=== PATIENT | male | born 1960 | race Caucasian/White ===

== ENCOUNTER 2022-06-22 12:00 | Observation (INO) | payer OTHER, MEDICAID, SELFPAY ==
[2022-06-22] VITALS (15 sets, daily range): BP systolic 105–128; BP diastolic 69–88; PULSE 59–84; RESP 12–22; TEMP 36; O2SAT 91–98; BMI 32.1
--- NOTE | 2022-06-22 12:30 | ED.DIZZY ---
HPI - Dizziness General Chief Complaint: Dizziness Stated Complaint: weakness, vomiting Time Seen by Provider: 06/22/22 12:14 Source: patient, family and EMS Mode of arrival: EMS History of Present Illness HPI Narrative: This 61-year-old man was standing at his home when suddenly he became very dizzy, this was this morning at 10:30 a.m. or 10 40. He said he was so dizzy could not keep himself upright and had to hold onto things to walk. He denies recent illness or fever or cough or URI symptoms. He denies previous history of dizziness. No head injury. He feels very nauseated and the dizziness is much worse with movement of his head. He has no neck pain or headache. No chest symptoms. Past medical history negative. He does not have history of hypertension, diabetes, stroke, cancer or cigarette smoking. He has no first-degree relatives with cerebrovascular disease. Related Data Allergies Allergy/AdvReac Type Severity Reaction Status Date / Time No Known Drug Allergies Allergy Verified 06/22/22 12:12 Review of Systems Review of Systems Narrative: Complete review of systems is negative other than as noted above. Patient History Social History Smoking Status: Never smoker Smoking Status: Never smoker alcohol intake frequency: 0-2 drinks per day Substance Use Type: does not use Exam Narrative Exam Narrative: GENERAL: Alert, cooperative and in no distress. HEAD: Atraumatic. Normocephalic. EYES: Sclera are clear without icterus. Extraocular movements are full. ENT: No rhinorrhea. Oropharynx is moist. Mouth exam is benign. NECK: Supple. Full range of motion. CARDIOVASCULAR: Normal rate and rhythm without murmur gallop or rub. RESPIRATORY: Clear to auscultation. Breath sounds equal bilaterally. No wheezes, rales, or rhonchi. GASTROINTESTINAL: Abdomen soft, non-tender, nondistended. EXTREMITIES: No edema, full range of motion. No obvious trauma. BACK: Normal inspection, no CVA tenderness. NEURO: Strength is normal and symmetric in the upper and lower extremities. Coordination is normal in upper and lower extremities. Visual arriaza are normal to confrontation. Extraocular movements are full. He does have nystagmus at rest. Face is symmetric. Speech is normal. SKIN: No rash or erythema of visible areas PSYCH: Normally oriented. Normal range of affect. Appropriate behavior Initial Vital Signs Initial Vital Signs: Vital Signs Pulse Rate 67 08/29/22 12:05 Course Orders Ordered: ED Orders 06/22/22 12:05 CBC Auto Diff [Complete Blood Count AUTO DIFF] Stat CMP [Comprehensive Metabolic Panel] Stat 06/22/22 12:10 COVID19 -Nasal RAPID/Pre-Proc Stat 06/22/22 12:19 EKG-12 Lead Stat 06/22/22 15:39 CT angio head and neck Stat Ondansetron HCl (Ondansetron 4 Mg/2 Ml Inj) 4 mg IV Q2HR PRN PRN Reason: Nausea And Vomiting Last Admin: 06/22/22 12:38 Dose: 4 mg Documented By: MLMarcelina Discontinued Medications Diazepam (Diazepam 10 Mg/2 Ml Syringe) 2.5 mg IV NOW ONE Stop: 06/22/22 12:29 Last Admin: 06/22/22 12:38 Dose: 2.5 mg Documented By: MARIELA Meclizine HCl (Meclizine Hcl 12.5 Mg Tablet) 25 mg PO NOW ONE Stop: 06/22/22 12:30 Last Admin: 06/22/22 12:38 Dose: 25 mg Documented By: MARIELA Reevaluation(s) Reevaluation #1: I went in just now at 3:30 p.m. to see how the patient was doing. He had just woken up on his own and was feeling quite a bit better with some continued dizziness but no more nausea. I set him up to try to do a road test but he immediate began vomiting again. Because of the severity of his symptoms and his refractory nature of the nystagmus and vomiting I want to check brain imaging and even if this is normal will need to admit for symptom management. Consultations Consultation #1: Discussed the case with Dr. Dobbs who agrees to admit the patient. CTA is negative for large vessel occlusion or vertebral artery dissection. I still think further evaluation for central vertigo is indicated. Vital Signs Vital signs: Vital Signs - 8 hr 06/22/22 12:12 06/22/22 12:05 06/22/22 12:30 Pulse Rate 70 67 68 Respiratory Rate 20 16 Blood Pressure 128/88 Pulse Oximetry 91 91 Oxygen Delivery Method Room Air 06/22/22 13:00 06/22/22 13:30 06/22/22 14:00 Pulse Rate 72 64 68 Respiratory Rate 19 13 14 Blood Pressure Pulse Oximetry 95 94 95 Oxygen Delivery Method 06/22/22 14:30 06/22/22 14:34 06/22/22 14:34 Pulse Rate 72 75 Respiratory Rate 12 14 Blood Pressure 121/79 Pulse Oximetry 98 98 Oxygen Delivery Method 06/22/22 15:00 06/22/22 15:00 Pulse Rate 76 Respiratory Rate 14 Blood Pressure 118/76 Pulse Oximetry 95 Oxygen Delivery Method MDM - Dizziness Lab Data Result diagrams: 06/22/22 12:05 06/22/22 12:05 Labs: Lab Results 06/22/22 06/22/22 06/22/22 Range/Units 12:05 12:05 12:10 WBC 8.4 (4.5-11.0) X10^3/uL RBC 5.11 (4.5-5.9) X10^6/uL Hgb 16.1 (13.5-17.5) g/dL Hct 45.2 (41-53) % MCV 88.4 (80-100) fL MCH 31.5 (26-34) PG MCHC 35.6 (30-36) % RDW 14.0 (11.6-14.8) % Plt Count 231 (150-400) X10^3/uL Neut % (Auto) 30.8 L (50-75) % Lymph % (Auto) 57.9 H (25-40) % [place] % (Auto) 7.9 (3-14) % Eos % (Auto) 2.8 (2-4) % Baso % (Auto) 0.6 (0-2) % Neut # (Auto) 2600 (1048-4426) /uL Lymph # (Auto) 4900 H (8955-8502) /uL [place] # (Auto) 700 (0-900) /uL Eos # (Auto) 200 (0-450) /uL Baso # (Auto) 100 (0-100) /uL Sodium 140 (137-145) mmol/L Potassium 3.3 L (3.4-5.1) mmol/L Chloride 106 (98-107) mmol/L Carbon Dioxide 23 (22-32) mmol/L BUN 13 (9-20) mg/dL Creatinine 0.86 (0.66-1.25) mg/dL Estimated GFR > 60 (>60) mL/min BUN/Creatinine Ratio 15.1 (6-22) Glucose 118 H (80-110) mg/dL Calcium 9.3 (8.4-10.2) mg/dL Total Bilirubin 0.7 (0.2-1.3) mg/dL AST 28 (17-59) IU/L ALT 25 (<50) IU/L Alkaline Phosphatase 63 (38-126) U/L Total Protein 8.0 (6.3-8.2) g/dL Albumin 4.5 (3.5-5.0) g/dL Globulin 3.5 (1.7-4.1) g/dL Albumin/Globulin Ratio 1.3 (1.0-2.8) SARS-CoV-2 (PCR) Negative (Negative) Imaging Data CT scan - head: Radiologist's Impression: IMPRESSION:? ? No imaging explanation is found for this patient's presenting symptoms.? ? No significant intracranial arterial abnormality is seen.? ? Within the arteries of the neck, no hemodynamically significant stenosis can be seen. ? No findings of dissection are seen. ? No acute intracranial process is seen.? ? No acute intracranial hemorrhage is seen.? ? Any quantitative measurements of stenosis were performed using NASCET criteria.? ? ? Dictated by: Murray Simms M.D. on 06/22/2022 at 15:15 ? ? Approved by: Murray Simms M.D. on 06/22/2022 at 15:17 ? ECG Data Interpretation: ECG obtained at 12:15 p.m. shows a sinus rhythm at 78 beats per minute and right bundle-branch block. No acute ST or T-wave change. Discharge Plan Departure Patient Disposition: Admitted As Inpatient Clinical Impression: Vertigo, Central nervous system origin vertigo
[2022-06-22] MEDS: MECLIZINE HCL 12.5 MG TABLET 25 MG PO (12:38)
[2022-06-22] MEDS: ONDANSETRON 4 MG/2 ML INJ IV (12:38)
[2022-06-22] MEDS: diazePAM 10 MG/2 ML SYRINGE 2.5 MG IV (12:38)
[2022-06-22 12:42] LABS: Alanine Aminotransferase 25 IU/L (<50); Albumin 4.5 g/dL (3.5-5.0); Albumin Globulin Ratio 1.3 (1.0-2.8); Alkaline Phosphatase 63 U/L (38-126); Aspartate Aminotransferase 28 IU/L (17-59); BUN Creatinine Ratio 15.1 (6-22); Bilirubin Total 0.7 mg/dL (0.2-1.3); Blood Urea Nitrogen 13 mg/dL (9-20); Calcium 9.3 mg/dL (8.4-10.2); Carbon Dioxide 23 mmol/L (22-32); Chloride 106 mmol/L (98-107); Estimated Glomerular Filt Rate > 60 mL/min (>60); Globulin 3.5 g/dL (1.7-4.1); Glucose 118 mg/dL (80-110); HEMOLYSIS 31 (0-50); Potassium 3.3 mmol/L (3.4-5.1); Sodium 140 mmol/L (137-145)
[2022-06-22 12:47] LABS: COVID19 -Nasal RAPID Negative (Negative)
[2022-06-22 12:49] LABS: Add Manual Diff / Slide Review NO; Basophils Absolute Auto 100 /uL (0-100); Basophils Percent Auto 0.6 % (0-2); Eosinophils Absolute Auto 200 /uL (0-450); Eosinophils Percent Auto 2.8 % (2-4); Hematocrit 45.2 % (41-53); Hemoglobin 16.1 g/dL (13.5-17.5); Lymphocytes Absolute Auto 4900 /uL (1100-4500); Lymphocytes Percent Auto 57.9 % (25-40); Mean Corpuscular HGB Conc 35.6 % (30-36); Mean Corpuscular Hemoglobin 31.5 PG (26-34); Mean Corpuscular Volume 88.4 fL (80-100); Monocytes Absolute Auto 700 /uL (0-900); Monocytes Percent Auto 7.9 % (3-14); Neutrophils Absolute Auto 2600 /uL (1500-7000); Neutrophils Percent Auto 30.8 % (50-75); Platelet Count 231 X10^3/uL (150-400); Red Blood Cell Count 5.11 X10^6/uL (4.5-5.9); White Blood Cell Count 8.4 X10^3/uL (4.5-11.0)
--- NOTE | 2022-06-22 15:39 | DI.CT.S_ITS ---
PROCEDURE: CT ANGIO HEAD AND NECK INDICATIONS: Refractory vertigo TECHNIQUE: Pre-contrast 4.5 mm thick sections acquired from the foramen magnum to the vertex. After the administration of intravenous contrast, 1 mm thick sections acquired from the aortic arch through the [place] of [place]. Post-contrast 4.5 mm thick sections then re-acquired from the foramen magnum to the vertex. 3-dimensional pybresz-tddtxrmzo-ibeyqbavgf (MIP) and/or volume rendering reformats were acquired of the central intracranial vasculature and neck separately. For radiation dose reduction, the following was used: automated exposure control, adjustment of mA and/or kV according to patient size. COMPARISON: None. FINDINGS: Image quality: Excellent. BRAIN: CSF spaces: Ventricles are normal in size and shape. Basal cisterns are patent. No extra-axial fluid collections. Brain: No midline shift. No intracranial bleeds or masses. [place]-white matter interface appears intact. Skull and face: Calvarium and facial bones appear intact, without suspicious lesions. Orbits appear normal. Sinuses: Sinuses and mastoids are clear. HEAD CT ANGIOGRAPHY: Anterior circulation: Intracranial internal carotid arteries are normal in size and flow. The flow within the paired anterior cerebral arteries is normal and symmetric. The flow within the middle cerebral arteries is normal and symmetric. The anterior communicating artery is seen. No aneurysms are seen. Posterior circulation: Visualized portions of the vertebral arteries demonstrate normal caliber, and join to form a normal appearing basilar artery. There is a prominent right posterior communicating artery seen, with an accompanying diminutive right P1 segment. This is attributed to a type origin of the right posterior cerebral artery, which is considered to be a normal developmental variant of typically no clinical consequence. Flow within the posterior cerebral arteries is normal and symmetric. No aneurysms are seen. NECK CT ANGIOGRAPHY: Carotid system: The great vessels demonstrate a conventional anatomy as they arise from the aortic arch. The origins of the common carotid arteries appear patent. The common carotid arteries demonstrate normal caliber and courses. The bifurcation regions are both widely patent. The internal carotid arteries demonstrate normal calibers and courses. Posterior circulation: The origins of the vertebral arteries both appear widely patent. The more superior extracranial portions of both vertebral arteries also demonstrate normal courses and calibers. They join to form a normal appearing basilar artery. Soft tissues: Visualized neck soft tissues demonstrate no suspicious abnormalities. Bones: No suspicious bony lesions. Visualized cervical spine appears normally aligned. Moderate cervical spine degenerative changes are seen. IMPRESSION: No imaging explanation is found for this patient's presenting symptoms. No significant intracranial arterial abnormality is seen. Within the arteries of the neck, no hemodynamically significant stenosis can be seen. No findings of dissection are seen. No acute intracranial process is seen. No acute intracranial hemorrhage is seen. Any quantitative measurements of stenosis were performed using NASCET criteria. Dictated by: Murray Simms M.D. on 06/22/2022 at 15:15 Approved by: Murray Simms M.D. on 06/22/2022 at 15:17
--- NOTE | 2022-06-22 18:04 | DI.MRI.S_ITS ---
PROCEDURE: MR HEAD/BRAIN WO CON INDICATIONS: r/o cerebellar stroke, pt w/ severe vertigo, NV, nystagmus TECHNIQUE: Noncontrast axial T1 spin echo, axial T2 fast spin echo, sagittal and axial FLAIR, coronal T2 fast spin echo, axial gradient echo, axial diffusion and ADC through the brain. COMPARISON: None. FINDINGS: Image quality: Excellent. CSF Spaces: Basal cisterns are patent. No extra-axial fluid collections. Ventricles are normal in size and shape. Brain: No intracranial masses or hemorrhage. [place]/white matter interface is normal. Brainstem appears normal. Diffusion-weighted images demonstrate no acute infarct. Normal intravascular flow voids are present. Mild atrophy and white matter chronic ischemic change without cerebellar infarct Skull and face: Calvarium has normal marrow signal. Orbits appear normal. Sinuses: Sinuses and mastoids are clear. IMPRESSION: Mild atrophy and white matter chronic ischemic change without acute infarct, hemorrhage or mass lesion. No cerebellar infarct. Approved by: Wesly Bentley M.D. on 06/22/2022 at 18:08
--- NOTE | 2022-06-22 18:06 | P.HP_ITS ---
History of Present Illness History of Present Illness Chief complaint: weakness, vomiting Narrative: Eric Good is a 61yo male with PMH of who presents with severe vertigo, NV and nystagmus. Patient History Family & Social History Safety & Behavioral: Feels Safe in Current Yes Environment Tobacco & Substance use: Smoking Status Never smoker alcohol intake frequency 0-2 drinks per day Substance Use Type does not use Meds Home Medications and Allergies Allergies Allergy/AdvReac Type Severity Reaction Status Date / Time No Known Drug Allergies Allergy Verified 06/22/22 12:12 Review of Systems Review of Systems Narrative: All other systems reviewed with the patient and are negative unless otherwise stated. Exam Vital Signs (past 8 hours): - 06/22/22 12:12 06/22/22 12:05 06/22/22 12:30 Pulse Rate 70 67 68 Respiratory Rate 20 16 Blood Pressure 128/88 Pulse Oximetry 91 91 Oxygen Delivery Method Room Air 06/22/22 13:00 06/22/22 13:30 06/22/22 14:00 Pulse Rate 72 64 68 Respiratory Rate 19 13 14 Blood Pressure Pulse Oximetry 95 94 95 Oxygen Delivery Method 06/22/22 14:30 06/22/22 14:34 06/22/22 14:34 Pulse Rate 72 75 Respiratory Rate 12 14 Blood Pressure 121/79 Pulse Oximetry 98 98 Oxygen Delivery Method 06/22/22 15:00 06/22/22 15:00 06/22/22 15:30 Pulse Rate 76 Respiratory Rate 14 Blood Pressure 118/76 123/85 Pulse Oximetry 95 Oxygen Delivery Method 06/22/22 15:30 06/22/22 17:49 06/22/22 17:49 Pulse Rate 84 82 Respiratory Rate 22 20 Blood Pressure 128/88 Pulse Oximetry 94 95 Oxygen Delivery Method Oxygen Delivery Method Room Air Narrative Exam Narrative: GEN: no acute distress HEENT: moist mucous membranes, PERRL NECK: trachea midline, no JVD CV: regular rate and rhythm, no murmurs PULM: clear bilaterally ABD: soft, nontender, nondistended, no organomegaly EXT: warm and well perfused with no edema NEURO: awake, alert, oriented, no focal deficits Objective Labs Result Diagrams: 06/22/22 12:05 06/22/22 12:05 Labs: Laboratory Results - last 24 hr 08/29/22 08/29/22 08/29/22 12:05 12:05 12:10 WBC 8.4 RBC 5.11 Hgb 16.1 Hct 45.2 MCV 88.4 MCH 31.5 MCHC 35.6 RDW 14.0 Plt Count 231 Neut % (Auto) 30.8 L Lymph % (Auto) 57.9 H [place] % (Auto) 7.9 Eos % (Auto) 2.8 Baso % (Auto) 0.6 Neut # (Auto) 2600 Lymph # (Auto) 4900 H [place] # (Auto) 700 Eos # (Auto) 200 Baso # (Auto) 100 Sodium 140 Potassium 3.3 L Chloride 106 Carbon Dioxide 23 BUN 13 Creatinine 0.86 Estimated GFR > 60 BUN/Creatinine Ratio 15.1 Glucose 118 H Calcium 9.3 Total Bilirubin 0.7 AST 28 ALT 25 Alkaline Phosphatase 63 Total Protein 8.0 Albumin 4.5 Globulin 3.5 Albumin/Globulin Ratio 1.3 SARS-CoV-2 (PCR) Negative Assessment & Plan Assessment & Plan narrative: # severe vertigo, nausea vomiting and nystagmus -concern is for possible cerebellar stroke -CTA head and neck negative -order MR brain - Code status is []. COVID []. DVT prophylaxis with []. Proxy is []. I have reviewed home meds and used all available resources to reconcile the home meds. Time Spent With Patient Critical Care time: I spent a total of [] minutes of critical care time on this patient's care today ; this time is exclusive of procedural time.
[2022-06-22 18:38] LABS: Hemoglobin A1C% w Est Avg Glu 5.5 % (4.0-6.0)
[2022-06-22 18:49] LABS: TSH w/ Reflex to FT4 1.85 uIU/mL (0.47-4.68)
[2022-06-22] MEDS: POTASSIUM CHLORIDE IN WATER 10 MEQ/100 ML PIGGYBACK 100 MEQ IV ×3 (19:42→22:41)
[2022-06-22] MEDS: ASPIRIN 325 MG TABLET PO (19:48)
[2022-06-22 23:18] LABS: Appearance Urine UA CLEAR; Bilirubin Urine UA NEGATIVE (NEGATIVE); Color Urine UA YELLOW; Glucose Urine UA NEGATIVE (Negative); Ketones Urine UA NEGATIVE (NEGATIVE); Leukocyte Esterase Urine UA NEGATIVE (NEGATIVE); Nitrite Urine UA NEGATIVE (Negative); Occult Blood Urine UA NEGATIVE (Negative); Protein Urine UA NEGATIVE (Negative); Specific Gravity Urine UA 1.015 (1.000-1.035); Urobilinogen Urine UA 0.2 E.U./dL (0.2); pH Urine UA 7.5 (4.5-8.0)
--- NOTE | 2022-06-22 23:23 | P.HP_ITS ---
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 Patient was presented to the ED by EMS following an acute onset at approximately 10:30 a.m. while standing of severe dizziness, the patient experienced disequilibrium, felt faint, diaphoresis, chills, nausea and began vomiting. This continued continued with any movement of his head or physical movement both in the ambulance, & in ED (vomited 8-9 times), but had resolved when transferred to the floor. The patient reports that he felt extremely sleepy both in the ambulance EN in the ED and was able to fall asleep. The patient received multiple doses of antiemetics in ED. 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 The patient's reported severe horizontal beating nystagmus with standing multiple times, not recorded on physi ely exam in ED. the patient denied any diplopia, ataxia, dysarthria, coordination impairment, focal or lateral weakness, changes in hearing loss, numbness, tingling, vision loss. Patient denies experiencing chest pain, shortness of breath, or becoming pale. He has never experienced this prior. Th sha attacks were not brought on by coughing, sneezing, denies recent URI, travel to altitude, recent head trauma body trauma, or injury. Patient notes that he did fly to multiple places around the country approximately 1 month ago. 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 Patient does not smoke, drinks approximately 1 beer daily, takes only an [id number] multivitamin, no other medications, no history of cardiac, respiratory, or neurological disorders. Patient does note that the last week in April patient had dental surgery on the upper right side of his mouth that required a bone graft and work with the nerve endings, patient does note that he has had some dental pain few teeth back on that upper right side. Patient is comfortably resting in bed upon admit to the floor and denies any di zziness, vertigo nausea, or vomiting at this time. A full neuro exam was completed, no symptoms were elicited, and was unremarkable. Patient's vitals were stable temp 96.8?, BP 123/88, HR 78, RR 12, O2 saturation 95% on room air, BMI 32.1, patient's CBC was unremarkable with the exception of lymph # [id number], patient had slight hypokalemia with a potassium of 3.3, glucose when 18, TSH was normal, head neck CT was unremarkable, brain MRI was unremarkable, patient's ECG sinus rhythm with a rate of 78 right bundle-branch block without ST or T-wave changes. Patient admitted for intractable nausea and vomiting, severe vertigo, with mild hypokalemia for observation. Patient History Medical History (Updated 06/22/22 @ 23:47 by TD Escobar-) Herniated lumbar intervertebral disc History of Chavez's palsy History of Lyme disease Mildly obese Surgical History (Updated 06/22/22 @ 23:49 by TD Escobar-) History of dental surgery History of inguinal hernia repair, bilateral History of lumbar surgery Family & Social History Family History (Updated 06/22/22 @ 23:48 by TD Escobar-BC) Mother Cancer Father Diabetes mellitus Cancer Social History: household members significant other, works as a ritchie Prior Living Arrangements House Safety & Behavioral: Feels Safe in Current Yes Environment Been Physically Hurt or No Threatened By a Person Tobacco & Substance use: Smoking Status Never smoker, no tobacco products alcohol intake current alcohol intake frequency 0-2 drinks per day beer Substance Use Type does not use Meds Home Medications and Allergies Home Medications Medication Instructions Recorded Confirmed Type No Known Home Medications 06/22/22 06/22/22 History Allergies Allergy/AdvReac Type Severity Reaction Status Date / Time No Known Drug Allergies Allergy Verified 06/22/22 12:12 Review of Systems Review of Systems Narrative: All 12 point systems reviewed with the patient and are negative except otherwise documented. Exam Vital Signs (past 8 hours): - 06/22/22 15:30 06/22/22 15:30 06/22/22 17:49 Temperature Pulse Rate 84 Pulse Rate [Orthostatic Lying] Pulse Rate [Orthostatic Sitting] Pulse Rate [Orthostatic Standing] Respiratory Rate 22 Blood Pressure 123/85 128/88 Blood Pressure [Orthostatic Lying] Blood Pressure [Orthostatic Sitting] Blood Pressure [Orthostatic Standing] Pulse Oximetry 94 Oxygen Delivery Method Oxygen Flow Rate 06/22/22 17:49 06/22/22 18:00 06/22/22 18:00 Temperature Pulse Rate 82 78 Pulse Rate [Orthostatic Lying] Pulse Rate [Orthostatic Sitting] Pulse Rate [Orthostatic Standing] Respiratory Rate 20 12 Blood Pressure 123/88 Blood Pressure [Orthostatic Lying] Blood Pressure [Orthostatic Sitting] Blood Pressure [Orthostatic Standing] Pulse Oximetry 95 95 Oxygen Delivery Method Oxygen Flow Rate 06/22/22 18:45 06/22/22 18:14 06/22/22 20:54 Temperature 96.8 F L Pulse Rate 66 Pulse Rate [Orthostatic Lying] 60 Pulse Rate [Orthostatic Sitting] 59 L Pulse Rate [Orthostatic Standing] 60 Respiratory Rate 18 Blood Pressure 123/82 Blood Pressure [Orthostatic Lying] 128/83 Blood Pressure [Orthostatic Sitting] 123/79 Blood Pressure [Orthostatic Standing] 117/69 Pulse Oximetry 97 Oxygen Delivery Method Room Air Oxygen Flow Rate 0 06/22/22 23:04 Temperature Pulse Rate 63 Pulse Rate [Orthostatic Lying] Pulse Rate [Orthostatic Sitting] Pulse Rate [Orthostatic Standing] Respiratory Rate 18 Blood Pressure 105/71 Blood Pressure [Orthostatic Lying] Blood Pressure [Orthostatic Sitting] Blood Pressure [Orthostatic Standing] Pulse Oximetry 92 Oxygen Delivery Method Oxygen Flow Rate 0 Oxygen Delivery Method Room Air Oxygen Flow Rate 0 Narrative Exam Narrative: General: Patient is a well-developed, well-nourished healthy pleasant male in no distress at this time. HEENT: Normocephalic, atraumatic, extraocular muscles intact, no nystagmus noted, oral pharynx is clear and mucous membranes are moist. Neck is supple and symmetric, trachea is midline, Noted tenderness to the upper right tooth area (#2-4, #5 missing where bone graph was placed) mild non erythemic inflammation noted along the temporal fascia, zygomatic arch, mastoid and parietal gland area on the right side, nontender to palpation, cool to touch, no thyroid enlargement, Negative for JVD. Patient had no vertigo with bending at the neck, ruling over in bed, or head motion. Or sitting up on the side of the bed. Chest: Normal AP diameter and contour without kyphoscoliosis, no nasal flaring, retractions, or tachypneic labored Lungs: Auscultation of all lung arriaza are clear without adventitious sounds, wheezes, rhonchi, or rales. Cardio: S1 & S2 with regular rate and rhythm without murmur, rubs, or gallops, no carotid bruit, no cardiac pulsations present. Abdomen: Soft nontender, negative for organomegaly, or masses. Bowel sounds are present in all 4 quadrants without guarding or rebound, no CVA tenderness. Musculoskeletal: Muscle strength and tone are equal within normal limits, no deformity, crepitus, effusions, cyanosis, clubbing or edema present. Full range of motion intact radial and pedal pulses are normal. Skin: Warm dry and intact without rashes, ulcerations or petechiae. Neuro: Alert and orientated x3, strength is +5/5 in all extremities, sensation to touch intact, no gross deficits noted of cranial nerves. Psych: Patient has a well-kept appearance, appropriate affect, mental status attitude thought context and judgment are appropriate for age. Objective Labs Result Diagrams: 06/22/22 12:05 06/22/22 12:05 Labs: Laboratory Results - last 24 hr 06/22/22 06/22/22 06/22/22 12:05 12:05 12:05 WBC 8.4 RBC 5.11 Hgb 16.1 Hct 45.2 MCV 88.4 MCH 31.5 MCHC 35.6 RDW 14.0 Plt Count 231 Neut % (Auto) 30.8 L Lymph % (Auto) 57.9 H Kinney % (Auto) 7.9 Eos % (Auto) 2.8 Baso % (Auto) 0.6 Neut # (Auto) 2600 Lymph # (Auto) 4900 H [place] # (Auto) 700 Eos # (Auto) 200 Baso # (Auto) 100 Sodium 140 Potassium 3.3 L Chloride 106 Carbon Dioxide 23 BUN 13 Creatinine 0.86 Estimated GFR > 60 BUN/Creatinine Ratio 15.1 Glucose 118 H Hemoglobin A1c 5.5 Calcium 9.3 Total Bilirubin 0.7 AST 28 ALT 25 Alkaline Phosphatase 63 Total Protein 8.0 Albumin 4.5 Globulin 3.5 Albumin/Globulin Ratio 1.3 TSH Urine Color Urine Appearance Urine pH Ur Specific [place] Urine Protein Urine Glucose (UA) Urine Ketones Urine Occult Blood Urine Nitrate Urine Bilirubin Urine Urobilinogen Ur Leukocyte Esterase SARS-CoV-2 (PCR) 06/22/22 06/22/22 06/22/22 12:05 12:10 22:30 WBC RBC Hgb Hct MCV MCH MCHC RDW Plt Count Neut % (Auto) Lymph % (Auto) [place] % (Auto) Eos % (Auto) Baso % (Auto) Neut # (Auto) Lymph # (Auto) [place] # (Auto) Eos # (Auto) Baso # (Auto) Sodium Potassium Chloride Carbon Dioxide BUN Creatinine Estimated GFR BUN/Creatinine Ratio Glucose Hemoglobin A1c Calcium Total Bilirubin AST ALT Alkaline Phosphatase Total Protein Albumin Globulin Albumin/Globulin Ratio TSH 1.85 Urine Color Yellow Urine Appearance Clear Urine pH 7.5 Ur Specific [place] 1.015 Urine Protein Negative Urine Glucose (UA) Negative Urine Ketones Negative Urine Occult Blood Negative Urine Nitrate Negative Urine Bilirubin Negative Urine Urobilinogen 0.2 Ur Leukocyte Esterase Negative SARS-CoV-2 (PCR) Negative Assessment & Plan Assessment & Plan narrative: Eric Good is a 61-year-old male with a 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 Patient admitted for observation, oral fluid hydration, replacement of mild hypokalemia, evaluation by PT/OT, rule out of cerebellar brainstem stroke. 1. Severe intractable vertigo with nystagmus and vomiting, acute, present on admission-resolving -patient was described as having a horizontal beating nystagmus was unable to further evaluate as was absent at the time of admit exam, patient did have postural instability, no deafness or tinea S, and no other neurological signs or symptoms were present, brain MRI was negative for any cerebellar brain stem stroke suggestive that this is peripheral vertigo versus central. NIH-0. I actually suspect that the patient's dental surgery(hardware, nerve, and bone graph) may possible developing a subacute dental infection (parotiditis, mastoiditis) on the right side with noted swelling around mastoid area. Though the patients blood work is initially unremarkable, swelling infection in this area could quickly lead to airway compromise. -because of the severity and acuteness of the patient's onset and the recent dental surgery-order blood cultures x2 -empiric antibiotic therapy penicillin 3 units q.4 hours, metrondazole 500 mg Q 8 hours IV -to cover streptococci and anaerobes including those producing beta l actamase -antiemetics, procalcitonin, repeat BNP and CBC in a.m. -encourage oral fluids and hydration -Monitor for sepsis -recommend that patient be sent home on oral antibiotics with follow-up appoin tments with his dentist -evaluation by PT and OT [place] maneuvers -ortho stats q.4 hours while awake 2. Mild hypokalemia likely secondary to vomiting, acute, present on admission- resolved -initial potassium 3.3-10 mEq IV initiated in ED -recheck potassium in a.m. 3. Mildly obese as evidence by BMI of 32.1, acute on chronic, present on admission -dietary consult ordered for recommendations regarding diet lifestyle and weight loss changes. Code status: Full Surrogate decision maker: Partner Juana Fish BAUTISTAID PCR: Negative COVID vaccination: Fully vaccinated DVT/VTE prophylaxis: Lovenox and SCDs Disposition: Patient admitted for observation expected length of stay no greate r than 2 midnights. I have utilized all available immediate resources to obtain, update, or review t he patient's current medications. I confirmed that the patient's advanced care plan is present, Code status is documented and/or surrogate decision maker is listed in the patient's medical record. Time Spent With Patient Critical Care time: I spent a total of [] minutes of critical care time on this patient's care today; this time is exclusive of procedural time. Scores NIHSS Level of Conciousness: Alert, keenly responsive Ask month/age: Answers both questions correctly. Open/close eyes, close hand: Performs both tasks correctly Best gaze horizontal: Normal Visual arriaza: No visual loss Facial palsy: Normal symetrical movement Left arm drift: No drift for full 10 sec Right arm drift: No drift for full 10 sec Left leg drift: No drift for full 5 sec Right leg drift: No drift for full 5 sec Limb ataxia: Absent Sensory on face/arms/legs: Normal, no sensory loss Best language: No aphasia, normal Dysarthria: Normal Extinction or inattention: No abnormality Total NIH Stroke scale score: 0 Quality VTE Deep Vein Thrombosis/Pulmonary Embolism Present on Admission: No
[2022-06-22 23:25] LABS: Bacteria Urine None Seen; Culture Indicated Urine Cult Not Indicated; RBC Urine None Seen (0-5/HPF); WBC Urine None Seen (0-5/HPF)
[2022-06-23] MEDS: POTASSIUM CHLORIDE IN WATER 10 MEQ/100 ML PIGGYBACK 100 MEQ IV (01:12)
[2022-06-23] MEDS: metroNIDAZOLE 500 MG/100 ML PIGGYBACK 100 MG IV ×2 (01:13→08:30)
[2022-06-23] MEDS: ONDANSETRON 4 MG/2 ML INJ IV (01:20)
[2022-06-23 01:35] LABS: Procalcitonin 0.05 ng/mL (<0.5)
[2022-06-23] MEDS: PENICILLIN G POTASSIUM 3,000,000 UNIT/50 ML FROZ.PIGGY 100 UNIT IV ×2 (03:15→08:30)
[2022-06-23 04:00] VITALS: BP 111/72; PULSE 86; RESP 18; TEMP 37; O2SAT 95
--- NOTE | 2022-06-23 07:42 | PM.DS.1 ---
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 Patient was presented to the ED by EMS following an acute onset at approximately 10:30 a.m. while standing of severe dizziness, the patient experienced disequilibrium, felt faint, diaphoresis, chills, nausea and began vomiting. This continued continued with any movement of his head or physical movement both in the ambulance, & in ED (vomited 8-9 times), but had resolved when transferred to the floor.? The patient reports that he felt extremely sleepy both in the ambulance EN in the ED and was able to fall asleep.? The patient received multiple doses of antiemetics in ED.? 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 ? ? The patient's reported severe horizontal beating nystagmus with standing multiple times, not recorded on physical exam in ED. the patient denied any diplopia, ataxia, dysarthria, coordination impairment, focal or lateral weakness, changes in hearing loss, numbness, tingling, vision loss.? Patient denies experiencing chest pain, shortness of breath, or becoming pale.? He has never experienced this prior.? These attacks were not brought on by coughing, sneezing, denies recent URI, travel to altitude, recent head trauma body trauma, or injury.? Patient notes that he did fly to multiple places around the country approximately 1 month ago.? 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 Patient does not smoke, drinks approximately 1 beer daily, takes only an ymcp-cey-nokghby multivitamin, no other medications, no history of cardiac, respiratory, or neurological disorders.? Patient does note that the last week in April patient had dental surgery on the upper right side of his mouth that required a bone graft and work with the nerve endings, patient does note that he has had some dental pain few teeth back on that upper right side. Patient is comfortably resting in bed upon admit to the floor and denies any dizziness, vertigo nausea, or vomiting at this time.? A full neuro exam was completed, no symptoms were elicited, and was unremarkable.? Patient's vitals were stable temp 96.8?, BP 123/88, HR 78, RR 12, O2 saturation 95% on room air, BMI 32.1, patient's CBC was unremarkable with the exception of lymph # [id number], patient had slight hypokalemia with a potassium of 3.3, glucose when 18, TSH was normal, head neck CT was unremarkable, brain MRI was unremarkable, patient's ECG sinus rhythm with a rate of 78 right bundle-branch block without ST or T-wave changes.? Patient admitted for intractable nausea and vomiting, severe vertigo, with mild hypokalemia for observation. Discharge Providers Provider Date of admission: 06/22/22 17:44 Discharge Date: 06/23/22 Consults: 06/22/22 18:59 Consult to Occupational Therapy Evaluate & Treat Comment: Physician Instructions: Evaluate and treat Consult to Physical Therapy Evaluate & Treat Comment: Physician Instructions: Evaluate and Treat Discharge provider: Garrison Dobbs DO Summary Hospital Course Discharge Diagnosis: 1. Severe intractable vertigo with nystagmus and vomiting, acute, present on admission-resolving -patient was described as having a horizontal beating nystagmus was unable to further evaluate as was absent at the time of admit exam, patient did have postural instability, no deafness or tinea S, and no other neurological signs or symptoms were present, brain MRI was negative for any cerebellar brain stem stroke suggestive that this is peripheral vertigo versus central. NIH-0.? I actually suspect that the patient's dental surgery(hardware, nerve, and bone graph) may possible developing a subacute dental infection (parotiditis, mastoiditis) on the right side with noted swelling around mastoid area. Though the patients blood work is initially unremarkable, swelling infection in this area could quickly lead to airway compromise. -because of the severity and acuteness of the patient's onset and the recent dental surgery-order blood cultures x2 -empiric antibiotic therapy penicillin 3 units q.4 hours, metrondazole 500 mg Q 8 hours IV -to cover streptococci and anaerobes including those producing beta lactamase -antiemetics, procalcitonin, repeat BNP and CBC in a.m. -encourage oral fluids and hydration -Monitor for sepsis -recommend that patient be sent home on oral antibiotics with follow-up appointments with his dentist -evaluation by PT and OT Piero Hallpike maneuvers -ortho stats q.4 hours while awake 2. Mild hypokalemia likely secondary to vomiting, acute, present on admission-resolved -initial potassium 3.3-10 mEq IV initiated in ED -recheck potassium in a.m. 3. Mildly obese as evidence by BMI of 32.1, acute on chronic, present on admission -dietary consult ordered for recommendations regarding diet lifestyle and weight loss changes. Hospital Course: Admitted for severe vertigo with NV. Concern was for cerebellar stroke but MR brain negative. Upon further eval he noted periodontal pain so thought was that a tooth infection may be contributing to his vertigo. He was started on augmentin. His vertigo resolved while inpatient. Possibly due to BPPV however patient denied it was related to head position. Discharged to f/u with PCP for piero-hallpike maneuver. Time Spent with Patient Time spent: Greater than 30 minutes Exam Vital Signs (past 8 hours): - 06/23/22 04:00 Temperature 98.6 F Pulse Rate 86 Respiratory Rate 18 Blood Pressure 111/72 Pulse Oximetry 95 Oxygen Flow Rate 0 Oxygen Delivery Method Room Air Oxygen Flow Rate 0 Narrative Exam Narrative: General: Patient is a well-developed, well-nourished healthy pleasant male in no distress at this time. HEENT: Normocephalic, atraumatic, extraocular muscles intact, no nystagmus noted, oral pharynx is clear and mucous membranes are moist. Neck is supple and symmetric, trachea is midline, Noted tenderness to the upper right tooth area (#2-4, #5 missing where bone graph was placed) mild non erythemic inflammation noted along the temporal fascia, zygomatic arch, mastoid and parietal gland area on the right side, nontender to palpation, cool to touch, no thyroid enlargement, Negative for JVD. Patient had no vertigo with bending at the neck, ruling over in bed, or head motion. Or sitting up on the side of the bed. Chest: Normal AP diameter and contour without kyphoscoliosis, no nasal flaring, retractions, or tachypneic labored Lungs: Auscultation of all lung arriaza are clear without adventitious sounds, wheezes, rhonchi, or rales. Cardio: S1 & S2 with regular rate and rhythm without murmur, rubs, or gallops, no carotid bruit, no cardiac pulsations present. Abdomen: Soft nontender, negative for organomegaly, or masses. Bowel sounds are present in all 4 quadrants without guarding or rebound, no CVA tenderness. Musculoskeletal: Muscle strength and tone are equal within normal limits, no deformity, crepitus, effusions, cyanosis, clubbing or edema present. Full range of motion intact radial and pedal pulses are normal. Skin: Warm dry and intact without rashes, ulcerations or petechiae. Neuro: Alert and orientated x3, strength is +5/5 in all extremities, sensation to touch intact, no gross deficits noted of cranial nerves. Psych: Patient has a well-kept appearance, appropriate affect, mental status attitude thought context and judgment are appropriate for age. Objective Labs Result Diagrams: 06/23/22 07:15 06/23/22 07:15 Labs: Laboratory Results - last 24 hr 06/22/22 06/22/22 06/22/22 12:05 12:05 12:05 WBC 8.4 RBC 5.11 Hgb 16.1 Hct 45.2 MCV 88.4 MCH 31.5 MCHC 35.6 RDW 14.0 Plt Count 231 Neut % (Auto) 30.8 L Lymph % (Auto) 57.9 H [place] % (Auto) 7.9 Eos % (Auto) 2.8 Baso % (Auto) 0.6 Neut # (Auto) 2600 Lymph # (Auto) 4900 H [place] # (Auto) 700 Eos # (Auto) 200 Baso # (Auto) 100 Sodium 140 Potassium 3.3 L Chloride 106 Carbon Dioxide 23 BUN 13 Creatinine 0.86 Estimated GFR > 60 BUN/Creatinine Ratio 15.1 Glucose 118 H Hemoglobin A1c 5.5 Calcium 9.3 Total Bilirubin 0.7 AST 28 ALT 25 Alkaline Phosphatase 63 Total Protein 8.0 Albumin 4.5 Globulin 3.5 Albumin/Globulin Ratio 1.3 Procalcitonin TSH Urine Color Urine Appearance Urine pH Ur Specific [place] Urine Protein Urine Glucose (UA) Urine Ketones Urine Occult Blood Urine Nitrate Urine Bilirubin Urine Urobilinogen Ur Leukocyte Esterase Urine RBC Urine WBC Urine Bacteria Ur Culture Indicated? SARS-CoV-2 (PCR) 06/22/22 06/22/22 06/22/22 12:05 12:10 22:30 WBC RBC Hgb Hct MCV MCH MCHC RDW Plt Count Neut % (Auto) Lymph % (Auto) [place] % (Auto) Eos % (Auto) Baso % (Auto) Neut # (Auto) Lymph # (Auto) [place] # (Auto) Eos # (Auto) Baso # (Auto) Sodium Potassium Chloride Carbon Dioxide BUN Creatinine Estimated GFR BUN/Creatinine Ratio Glucose Hemoglobin A1c Calcium Total Bilirubin AST ALT Alkaline Phosphatase Total Protein Albumin Globulin Albumin/Globulin Ratio Procalcitonin TSH 1.85 Urine Color Yellow Urine Appearance Clear Urine pH 7.5 Ur Specific [place] 1.015 Urine Protein Negative Urine Glucose (UA) Negative Urine Ketones Negative Urine Occult Blood Negative Urine Nitrate Negative Urine Bilirubin Negative Urine Urobilinogen 0.2 Ur Leukocyte Esterase Negative Urine RBC None seen Urine WBC None seen Urine Bacteria None seen Ur Culture Indicated? Cult not indicated SARS-CoV-2 (PCR) Negative 06/23/22 00:45 WBC RBC Hgb Hct MCV MCH MCHC RDW Plt Count Neut % (Auto) Lymph % (Auto) [place] % (Auto) Eos % (Auto) Baso % (Auto) Neut # (Auto) Lymph # (Auto) [place] # (Auto) Eos # (Auto) Baso # (Auto) Sodium Potassium Chloride Carbon Dioxide BUN Creatinine Estimated GFR BUN/Creatinine Ratio Glucose Hemoglobin A1c Calcium Total Bilirubin AST ALT Alkaline Phosphatase Total Protein Albumin Globulin Albumin/Globulin Ratio Procalcitonin 0.05 TSH Urine Color Urine Appearance Urine pH Ur Specific [place] Urine Protein Urine Glucose (UA) Urine Ketones Urine Occult Blood Urine Nitrate Urine Bilirubin Urine Urobilinogen Ur Leukocyte Esterase Urine RBC Urine WBC Urine Bacteria Ur Culture Indicated? SARS-CoV-2 (PCR) [facility] Medical History Herniated lumbar intervertebral disc History of Chavez's palsy History of Lyme disease Mildly obese Surgical History History of dental surgery History of inguinal hernia repair, bilateral History of lumbar surgery Family History Mother Cancer Father Diabetes mellitus Cancer Social History household members: significant other Smoking Status: Never smoker alcohol intake: current Discharge Plan Discharge Plan Patient Disposition: Home Provider Discharge Comment: Your vertigo and nausea may be due to an underlying tooth infection so we will treat with an oral antibiotic for 7 days to be sure. We don't think you had a stroke or anything else that is serious. Discharge orders & Medications Prescriptions: New amoxicillin-pot clavulanate 875-125 mg tablet 1 tab PO BID 7 Days Qty: 14 0RF Visit Report/Discharge Packet Instructions: Amoxicillin and Clavulanic Acid, How to Use Antibiotics Wisely Discharge Data Attending Provider: Garrison Dobbs VTE Deep Vein Thrombosis/Pulmonary Embolism Present on Admission: No
[2022-06-23 07:46] VITALS: BP 102/73; BP 110/74; BP 113/76; PULSE 82; PULSE 84; PULSE 97; RESP 17; TEMP 36.8; O2SAT 94
[2022-06-23 07:57] LABS: Add Manual Diff / Slide Review NO; Basophils Absolute Auto 0 /uL (0-100); Basophils Percent Auto 0.3 % (0-2); Eosinophils Absolute Auto 100 /uL (0-450); Eosinophils Percent Auto 0.8 % (2-4); Hematocrit 42.3 % (41-53); Hemoglobin 14.8 g/dL (13.5-17.5); Lymphocytes Absolute Auto 2200 /uL (1100-4500); Lymphocytes Percent Auto 26.4 % (25-40); Mean Corpuscular HGB Conc 34.9 % (30-36); Mean Corpuscular Hemoglobin 31.1 PG (26-34); Monocytes Absolute Auto 500 /uL (0-900); Monocytes Percent Auto 6.4 % (3-14); Neutrophils Absolute Auto 5500 /uL (1500-7000); Neutrophils Percent Auto 66.1 % (50-75); Platelet Count 189 X10^3/uL (150-400); Red Blood Cell Count 4.76 X10^6/uL (4.5-5.9); Red Cell Distribution Width 14.1 % (11.6-14.8); White Blood Cell Count 8.3 X10^3/uL (4.5-11.0)
[2022-06-23] MEDS: ENOXAPARIN 40 MG/0.4 ML SYRINGE SUBCUT (08:31)
[2022-06-23 09:00] LABS: BUN Creatinine Ratio 11.3 (6-22); Blood Urea Nitrogen 9 mg/dL (9-20); Calcium 8.8 mg/dL (8.4-10.2); Carbon Dioxide 24 mmol/L (22-32); Chloride 108 mmol/L (98-107); Estimated Glomerular Filt Rate > 60 mL/min (>60); Glucose 92 mg/dL (80-110); HEMOLYSIS < 15 (0-50); Magnesium 2.1 mg/dL (1.6-2.3); Potassium 3.9 mmol/L (3.4-5.1); Sodium 139 mmol/L (137-145)
[2022-06-23 09:05] LABS: Cholesterol 210 mg/dL (140-199); HDL Cholesterol 39 mg/dL (40-60); LDL Cholesterol Calculated 124 mg/dL (<100); Triglycerides 235 mg/dL (35-150)
--- NOTE | 2022-06-23 09:37 | PT.IIE ---
Surgical History (Last Reviewed 06/23/22 @ 07:43 by Garrison Dobbs DO) History of dental surgery History of inguinal hernia repair, bilateral History of lumbar surgery Medical History (Last Reviewed 06/23/22 @ 07:43 by Garrison Dobbs DO) Herniated lumbar intervertebral disc History of Chavez's palsy History of Lyme disease Mildly obese Physical Therapy Inpatient Evaluation/Re-Eval M1 PT/OT-IP Prior Functional Status Start: 06/23/22 09:42 Freq: NEEDED Status: Active Protocol: Document 06/23/22 09:37 DLM (Rec: 06/23/22 09:49 [facility] [id number]) Medical Review Prior Functional Status Medical History Reviewed Yes Diet/Fluid Consistency Regular Communication WNL, glasses Mobility and Gait Independent without device, used walker in past when back pain flared up, very active, uses ladders Activities of Daily Living and IADL's Independent, drives Prior Functional Level (Other details) remodeling his old house, hx of working on old [employer] Social History Household Members significant other Living Arrangements House Number of Floors (Floors) Two Floors Number of Stairs To Enter/Railing? stairs everywhere Home Equipment Front Wheel Walker M2 PT-IP Current Condition Start: 06/23/22 09:42 Freq: NEEDED Status: Active Protocol: Document 06/23/22 09:37 DLM (Rec: 06/23/22 09:49 [facility] [id number]) Physical Therapy Current Condition Current Condition Evaluation Date 06/23/22 Treatment Diagnosis dizziness, vomiting Onset Date 06/22/22 M3 PT-IP Subjective Start: 06/23/22 09:42 Freq: NEEDED Status: Active Protocol: Document 06/23/22 09:37 DLM (Rec: 06/23/22 09:49 [facility] [id number]) Subjective Physical Therapy Visit Type Type Initial Evaluation Visit Start Time 09:00 Visit Stop Time 09:37 Total Visit Minutes 37 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 Physical Therapy Visit Comments Patient Comments He feels better since admission Patient Goals go home and get back to normal activities M4 PT-IP Mobility and Gait Start: 06/23/22 09:42 Freq: NEEDED Status: Active Protocol: Document 06/23/22 09:37 DLM (Rec: 06/23/22 09:49 [facility] [id number]) PT-Bed Mobility Assessment Rolling Type of Rolling Bilateral Level of Assist Independent Supine to Sit Supine to Sit Independent Sit to Supine Sit to Supine Independent Scooting Scooting to Edge of Bed Independent Scooting Up and Down in Bed Independent PT-Transfer Assessment Sit to and From Stand Sit to and from Stand Independent Equipment Transfer Assistive Device Gait Belt Transfers Transfer Destination Bed,Chair,Toilet Transfer Technique Stand Step Pivot Transfer Ability Level of Assist Independent Gait Assessment Gait Gait Assistance Required: Independent Distance (Feet) 300 Assistive Devices Assistive Device Gait Belt Comments Gait Comments no dizziness with activity/ gait, no losses of balance, no device needed Stair Climbing Assessment Evaluation Level of Assist On Stairs Independent Devices Stair Climbing Assistive Devices Left Railing Technique/Endurance Stair Climbing Direction Ascend and Descend Stair Climbing Technique Step Over Step Number of Steps Climbed 3 Query Text: Stair Climbing Set # Repetitions (reps) 1 Comments Stair Climbing Comments no difficulty on stairs PT-Balance Assessment Sitting Balance and Reactions Static Sitting Balance Ability Normal Dynamic Sitting Balance Ability Normal Standing Balance and Reactions Static Standing Balance Ability Good Dynamic Standing Balance Ability Good Device Used none M5 PT-IP Objective Assessments Start: 06/23/22 09:42 Freq: NEEDED Status: Active Protocol: Document 06/23/22 09:37 DLM (Rec: 06/23/22 09:49 [facility] [id number]) Orientation Orientation/Cognition Level of Alertness Alert Orientation Name,Age,Birthday,Month,Date, Year,Day of Week,Place, Situation Language Function Ability No Deficits Noted Safety Awareness Understands Safety Issues Memory Description No Deficits Noted Comments wearing glasses, no nystagmus observed Gross Range of Motion Upper Extremity ROM Assessment Within Functional Limits Lower Extremity ROM Assessment Within Functional Limits Strength Upper Extremity Strength Assessment Within Functional Limits Lower Extremity Strength Assessment Within Functional Limits Coordination Assessment Gross Coordination Gross Coordination WNL Sensation Assessment Sensation Gross Sensation WNL Comments Sensation Comments denies numbness/tingling Muscle Tone Muscle Tone WNL Yes M6 PT-IP Treatment Start: 06/23/22 09:42 Freq: NEEDED Status: Active Protocol: Document 06/23/22 09:37 DLM (Rec: 06/23/22 09:49 [facility] [id number]) Physical Therapy Treatment Education Education Provided Safety M7 PT-IP Assessment and Plan Start: 06/23/22 09:42 Freq: NEEDED Status: Active Protocol: Document 06/23/22 09:37 YANE (Rec: 06/23/22 09:49 YANE [id number]) PT Summary Assessment and Plan Potential Rehabilitation Potential Excellent Status of Condition at Evaluation Stable Summary Progress Towards Goals Safe For Discharge Assessment Summary Eric's symptoms have resolved . No dizziness with activity nor at rest. He is still on IV antibiotics at this time. He tolerated gait in the anaya well without a device. No skilled physical therapy needs identified at this time. He verbalizes good safety awareness and awareness of his current situation. Will discharge physical therapy. Pt has discharge order to go home today. Frequency of Treatment Frequency Of Treatment Discharge Treatment Plan Other Recommendations and Next Treatment no further treatment needed Focus Precautions Other Precautions no longer having dizziness Recommendations To Nursing Amount of Assist Needed Independent Discharge Recommendations PT Discharge Recommendations Home Transportation Needs at Discharge Private Vehicle
--- NOTE | 2022-06-23 11:00 | CM.DANOTE ---
DCP Assessment: Payor: [employer] & Medicaid PCP: None Pt is a 61 y.o. M who presented via ambulance to the ER for weakness and vomiting. Pt told the ER physician that he was standing at home and became dizzy and could not keep himself upright and had to hold onto things to walk. Pt does not have any significant PMH. Pt admitted for vertigo symptoms. DCP met with patient this morning to discuss discharge needs. Pt sitting up in bed. DCP introduced herself and role. Pt states that he lives on [address] [facility] [address] with his giana and is getting next month. Pt states that he is independent at baseline and denies DME use. Pt states that he still drives POV. No discharge needs. Pt states that he has to finish antibiotics and then can be discharged. Whiteboard updated. Instructed to call. P: Pt to discharge home today via fiancee POV and take the [facility] [place]. Fozia Mcclure RN/LISA Discharge Planning/Care Management CM Discharge Assessment Start: 06/23/22 10:59 Freq: Status: Active Protocol: Document 06/23/22 10:59 MIGUEL (Rec: 06/23/22 11:00 MIGUEL [id number]) Discharge Planning Assessment Assigned Hand Cigar Maker Fozia Mcclure RN/LISA Advance Directives? No History Provided By Patient Prior Living Arrangements House Household Members significant other Type of transporation used prior to Drives own vehicle admit Independent with ADL's Yes Is patient alert and oriented? Yes Caregiver for Another No Discharge Plan Home Transportation Arrangement Spouse POV Referrals Initiated None needed Whiteboard Updated in Patient Room with Yes name and ext. # of Hand Cigar Maker Comment Instructed to call Review Status In Process Please Provide Date Initial DC 06/23/22 Assessment Was Performed Next Review Type Continued Stay Review
--- NOTE | 2022-06-23 11:44 | OT.IPNOTE ---
Pt already discharged and not able to see for OT eval.
== END 2022-06-23 11:20 | disposition home or self-care (01) ==
LOC: ED 16:36 → AC 17:45
PROVIDERS: Nurse Practitioner Family; Admitting Provider Student in an Organized Health Care Education/Training Program; Emergency Provider Family Medicine Addiction Medicine; Referring Provider Family Medicine Addiction Medicine; Visit Provider Student in an Organized Health Care Education/Training Program
DX: R11.2 Nausea with vomiting, unspecified (principal); H55.00 Unspecified nystagmus; R42 Dizziness and giddiness; E87.6 Hypokalemia; Z20.822 Contact with and (suspected) exposure to COVID-19
CPT/HCPCS: 36415; 70496; 70498; 70551; 80048; 80053; 80061; 81001; 83036; 83735; 84145; 84443; 85025; 87040; 87635; 93005; 96365; 96366; 96368; 96372; 96375; 97161; 99284; 99285; C9803; G0378; J1650; J2405; J2540; J3360; Q9967

== ENCOUNTER 2024-01-10 09:43 | Observation (INO) | payer OTHER, SELFPAY ==
[2022-06-22 18:14] VITALS: BMI 32.1
[2024-01-10] VITALS (19 sets, daily range): BP systolic 124–148; BP diastolic 76–103; PULSE 96–106; RESP 11–22; TEMP 36.8–36.9; O2SAT 93–98; BMI 32.1
--- NOTE | 2024-01-10 09:47 | DI.RAD.S_ITS ---
PROCEDURE: XR CHEST 1V INDICATIONS: chest pain TECHNIQUE: One view of the chest was acquired. COMPARISON: None. FINDINGS: Surgical changes and devices: None. Lungs and pleura: Lungs are clear. No pleural effusions or pneumothorax. Mediastinum: Mediastinal contours appear normal. Heart size is normal. Bones and chest wall: No suspicious bony lesions. Overlying soft tissues appear unremarkable. IMPRESSION: No acute cardiopulmonary abnormality is seen. Dictated by: Shimon Beach M.D. on 01/10/2024 at 10:23 Approved by: Shimon Beach M.D. on 01/10/2024 at 10:26
[2024-01-10 10:11] LABS: Add Manual Diff / Slide Review NO; Basophils Absolute Auto 100 /uL (0-100); Basophils Percent Auto 0.5 % (0-2); Eosinophils Absolute Auto 100 /uL (0-450); Eosinophils Percent Auto 0.4 % (2-4); Hematocrit 45.3 % (41-53); Hemoglobin 15.8 g/dL (13.5-17.5); Lymphocytes Absolute Auto 2000 /uL (1100-4500); Lymphocytes Percent Auto 13.1 % (25-40); Mean Corpuscular Hemoglobin 31.3 PG (26-34); Mean Corpuscular Volume 89.6 fL (80-100); Monocytes Absolute Auto 1100 /uL (0-900); Monocytes Percent Auto 7.1 % (3-14); Neutrophils Absolute Auto 12000 /uL (1500-7000); Neutrophils Percent Auto 78.9 % (50-75); Platelet Count 203 X10^3/uL (150-400); Red Blood Cell Count 5.06 X10^6/uL (4.5-5.9); Red Cell Distribution Width 13.5 % (11.6-14.8); White Blood Cell Count 15.3 X10^3/uL (4.5-11.0)
[2024-01-10] MEDS: ASPIRIN 81 MG CHEW TAB 324 MG PO (10:11)
[2024-01-10 10:14] LABS: Alanine Aminotransferase 26 IU/L (<50); Albumin 4.5 g/dL (3.5-5.0); Albumin Globulin Ratio 1.1 (1.0-2.8); Alkaline Phosphatase 64 U/L (38-126); Aspartate Aminotransferase 21 IU/L (17-59); BUN Creatinine Ratio 13.4 (6-22); Bilirubin Total 1.8 mg/dL (0.2-1.3); Blood Urea Nitrogen 13 mg/dL (9-20); Calcium 9.3 mg/dL (8.4-10.2); Carbon Dioxide 29 mmol/L (22-32); Chloride 102 mmol/L (98-107); Creatine Kinase 98 U/L (55-170); Estimated Glomerular Filt Rate > 60 mL/min (>60); Glucose 121 mg/dL (80-110); HEMOLYSIS < 15 (0-50); Lipase 50 U/L (23-300); Magnesium 2.2 mg/dL (1.6-2.3); Potassium 4.1 mmol/L (3.4-5.1); Sodium 137 mmol/L (137-145); Total Protein 8.5 g/dL (6.3-8.2)
[2024-01-10 10:15] LABS: INR 1.1 (0.9-1.3); Prothrombin Time 12.8 SECONDS (9.4-12.5)
[2024-01-10 10:18] LABS: PTT Partial Thromboplastin Tim 32 SECONDS (25.1-36.5)
[2024-01-10 10:25] LABS: Troponin I < 0.012 ng/mL (0.01-0.034)
--- NOTE | 2024-01-10 11:35 | ED_ITS ---
HPI - Chest Pain General Chief Complaint: Chest Pain Stated Complaint: thinks he had a mild heart attack Time Seen by Provider: 01/10/24 10:30 Source: patient Mode of arrival: Ambulatory Limitations: no limitations History of Present Illness HPI narrative: This is a 63-year-old male who presents with complaint of chest pain that started Wednesday. States he felt a knot in the back of his spine nothing seemed to make it feel better and then it came around to the front substernally and just below. He states he felt hard and tight in that area and was very uncomfortable. Movement did not seem to make anything worse it lasted through the entire night on Wednesday was quite intense and then has since improved. He is still feels sort of tight and uncomfortable. He states Wednesday still hurt but was not as intense. He is felt very fatigued since, he denies any shortness of breath, no fevers. This morning he felt sweaty but did not have any increase of pain. This is while he was drinking his coffee. He was very nauseated when it was most intense on Wednesday but not since. No vomiting, no issues with bowel movements, no urinary symptoms, no swelling of extremities. Patient states he had an episode of vertigo about a year ago had workup including MR which was reportedly negative. States no known medical issues otherwise. Has had prior low back surgery bilateral hernia repair in the past. No known drug allergies. No tobacco, 1-2 beers daily, no recreational drugs. Notes his dad of an ME around age 68, had a paternal uncle which he thinks also had cardiac issues, has a brother with neuropathy but no other known cardiac issues. Related Data Previous Rx's Medication Instructions Recorded amoxicillin 875 mg-potassium 1 tab PO BID #6 tabs 08/09/22 clavulanate 125 mg tablet Allergies Allergy/AdvReac Type Severity Reaction Status Date / Time No Known Drug Allergies Allergy Verified 08/09/22 11:21 Review of Systems Review of Systems ROS Unobtainable: All systems reviewed & are unremarkable except as noted in HPI and below Patient History Medical History Mildly obese Herniated lumbar intervertebral disc History of Chavez's palsy History of Lyme disease Surgical History History of dental surgery History of inguinal hernia repair, bilateral History of lumbar surgery Family History Mother Cancer Father Diabetes mellitus Cancer Social History household members: significant other Smoking Status: Never smoker alcohol intake: current Smoking Status: Never smoker alcohol intake frequency: 0-2 drinks per day Alcohol type: beer Substance Use Type: does not use Exam Narrative Exam Narrative: GENERAL: Alert and oriented x three, male in mild distress. HEENT: Head normocephalic, atraumatic, EOMI, pupils reactive, face symmetric, moist mucous membranes NECK: Supple, full range of motion CARDIOVASCULAR: Regular rate and rhythm without murmurs, rubs or gallops. No JVD. No edema bilateral lower extremities. 2+ pulses in all 4 extremities. RESPIRATORY: Breath sounds equal bilaterally, no wheezes rales or rhonchi. No tachypnea or accessory muscle use. ABDOMEN: Soft, nontender. Normoactive bowel sounds all 4 quadrants. No guarding or rebound, rigidity, no mass, no pulsatile mass or bruit. : No CVA tenderness EXTREMITIES: Normal range of motion, no clubbing or edema. Neurovascularly intact NEUROLOGICAL: Cranial nerves II through XII grossly intact. Moving all extremities SKIN: Warm, dry, no petechiae, no rashes or lesions. Initial Vital Signs Initial Vital Signs: Vital Signs Pulse Rate 103 H 01/10/24 09:49 Respiratory Rate 17 01/10/24 09:49 Blood Pressure 135/100 H 01/10/24 09:49 Pulse Oximetry 97 01/10/24 09:49 Course Orders Ordered: ED Orders 01/10/24 09:47 XR chest 1V Stat EKG-12 Lead Stat 01/10/24 09:55 Complete Blood Count AUTO DIFF Stat Comprehensive Metabolic Panel Stat D Dimer Stat Lipase Stat Magnesium Stat PTT Partial Thromboplastin Dimitrios Stat Prothrombin Time INR Stat Troponin & CK Cardiac Panel Stat 01/10/24 12:28 EKG-12 Lead Stat 01/10/24 12:35 Trop I [Troponin I] Stat 01/10/24 13:00 CT angio chest PE protocol Stat 01/10/24 13:26 US abdomen limited Stat 01/10/24 14:30 Urine Microscopic Stat 01/10/24 15:32 Education, smoking cessation ONGOING 01/11/24 Complete Blood Count AUTO DIFF Routine Comprehensive Metabolic Panel Routine 01/11/24 15:00 XR cholangiogram operative Stat Acetaminophen (Acetaminophen 325 Mg Tablet) 650 mg PO Q6H PRN PRN Reason: Fever/Mild Pain (1-3) Hydrocodone Bitart/Acetaminophen (Hydrocodone/Acet 5/325 Tablet) 1 tab PO Q4H PRN PRN Reason: Pain, Moderate (4-6) Hydrocodone Bitart/Acetaminophen (Hydrocodone/Acet 5/325 Tablet) 2 tab PO Q4H PRN PRN Reason: Pain, Severe (7-10) Hydromorphone HCl (Hydromorphone 0.5 Mg Inj) 0.5 mg IV Q2H PRN PRN Reason: Pain, Severe (7-10) Lactated Ringer's (Lactated Ringers) 1,000 mls @ 100 mls/hr IV CONT HORTENCIA Piperacillin Sod/Tazobactam (Sod 3.375 gm/ Sodium Chloride) 100 mls @ 25 mls/hr IV Q8H HORTENCIA Ibuprofen (Ibuprofen 600 Mg Tablet) 600 mg PO Q6H PRN PRN Reason: Fever/Mild Pain (1-3) Naloxone HCl (Naloxone 0.4 Mg/Ml Vial) 0.2 mg IV Q2MIN PRN PRN Reason: Opiate Reversal Ondansetron HCl (Ondansetron 4 Mg/2 Ml Inj) 4 mg IV Q8HR PRN PRN Reason: Nausea And Vomiting Discontinued Medications Aspirin (Aspirin 81 Mg Chew Tab) 324 mg PO NOW ONE Stop: 01/10/24 09:48 Last Admin: 01/10/24 10:11 Dose: 324 mg Documented By: JORGE Piperacillin Sod/Tazobactam (Sod 4.5 gm/ Sodium Chloride) 100 mls @ 200 mls/hr IV NOW ONE Stop: 01/10/24 15:13 Last Admin: 01/10/24 16:03 Dose: 200 mls/hr Documented By: JORGE Piperacillin Sod/Tazobactam (Sod 4.5 gm/ Sodium Chloride) 100 mls @ 25 mls/hr IV Q8H HORTENCIA Last Admin: 01/10/24 16:04 Dose: Not Given Documented By: JORGE Vital Signs Vital signs: Vital Signs - 8 hr 01/10/24 09:49 01/10/24 09:49 01/10/24 09:50 Temperature Pulse Rate 103 H 102 H Respiratory Rate 17 17 Blood Pressure 135/100 H Pulse Oximetry 97 97 Oxygen Delivery Method 01/10/24 09:50 01/10/24 09:53 01/10/24 10:00 Temperature 98.3 F Pulse Rate 102 H 100 H Respiratory Rate 18 20 Blood Pressure 147/103 H 135/100 H Pulse Oximetry 98 97 Oxygen Delivery Method Room Air 01/10/24 10:00 01/10/24 10:30 01/10/24 10:30 Temperature Pulse Rate 97 H Respiratory Rate 11 L Blood Pressure 132/85 143/82 H Pulse Oximetry 97 Oxygen Delivery Method 01/10/24 11:00 01/10/24 11:00 01/10/24 11:30 Temperature Pulse Rate 100 H Respiratory Rate 15 Blood Pressure 139/85 134/87 Pulse Oximetry 93 Oxygen Delivery Method 01/10/24 11:30 01/10/24 12:00 01/10/24 12:00 Temperature Pulse Rate 101 H 101 H Respiratory Rate 16 18 Blood Pressure 143/97 H Pulse Oximetry 93 94 Oxygen Delivery Method 01/10/24 12:30 01/10/24 12:30 01/10/24 13:00 Temperature Pulse Rate 96 H Respiratory Rate 17 Blood Pressure 144/76 H 138/86 Pulse Oximetry 97 Oxygen Delivery Method 01/10/24 13:00 01/10/24 13:30 01/10/24 13:30 Temperature Pulse Rate 97 H 96 H Respiratory Rate 14 21 Blood Pressure 148/93 H Pulse Oximetry 96 98 Oxygen Delivery Method 01/10/24 14:00 01/10/24 14:00 01/10/24 14:30 Temperature Pulse Rate 106 H 98 H Respiratory Rate Blood Pressure 138/88 Pulse Oximetry 96 98 Oxygen Delivery Method 01/10/24 14:31 01/10/24 14:31 01/10/24 15:00 Temperature Pulse Rate 100 H 97 H Respiratory Rate 20 15 Blood Pressure 136/90 Pulse Oximetry 98 94 Oxygen Delivery Method 01/10/24 15:00 01/10/24 15:30 01/10/24 15:30 Temperature Pulse Rate 105 H Respiratory Rate 22 Blood Pressure 130/76 124/76 Pulse Oximetry 95 Oxygen Delivery Method MDM - Chest Pain Lab Data 01/10/24 09:55 01/10/24 09:55 Labs: Lab Results 01/10/24 01/10/24 01/10/24 Range/Units 09:55 12:35 14:30 WBC 15.3 H (4.5-11.0) X10^3/uL RBC 5.06 (4.5-5.9) X10^6/uL Hgb 15.8 (13.5-17.5) g/dL Hct 45.3 (41-53) % MCV 89.6 (80-100) fL MCH 31.3 (26-34) PG MCHC 35.0 (30-36) % RDW 13.5 (11.6-14.8) % Plt Count 203 (150-400) X10^3/uL Neut % (Auto) 78.9 H (50-75) % Lymph % (Auto) 13.1 L (25-40) % [place] % (Auto) 7.1 (3-14) % Eos % (Auto) 0.4 L (2-4) % Baso % (Auto) 0.5 (0-2) % Neut # (Auto) 01636 H (9139-6632) /uL Lymph # (Auto) 2000 (0561-6039) /uL [place] # (Auto) 1100 H (0-900) /uL Eos # (Auto) 100 (0-450) /uL Baso # (Auto) 100 (0-100) /uL PT 12.8 H (9.4-12.5) SECONDS INR 1.1 (0.9-1.3) APTT 32 (25.1-36.5) SECONDS D-Dimer 1322 H (<500) ng/ml Sodium 137 (137-145) mmol/L Potassium 4.1 (3.4-5.1) mmol/L Chloride 102 (98-107) mmol/L Carbon Dioxide 29 (22-32) mmol/L BUN 13 (9-20) mg/dL Creatinine 0.97 (0.66-1.25) mg/dL Estimated GFR > 60 (>60) mL/min BUN/Creatinine Ratio 13.4 (6-22) Glucose 121 H (80-110) mg/dL Calcium 9.3 (8.4-10.2) mg/dL Magnesium 2.2 (1.6-2.3) mg/dL Total Bilirubin 1.8 H (0.2-1.3) mg/dL AST 21 (17-59) IU/L ALT 26 (<50) IU/L Alkaline Phosphatase 64 (38-126) U/L Total Creatine Kinase 98 (55-170) U/L Troponin I < 0.012 < 0.012 (0.01-0.034) ng/mL Total Protein 8.5 H (6.3-8.2) g/dL Albumin 4.5 (3.5-5.0) g/dL Globulin 4.0 (1.7-4.1) g/dL Albumin/Globulin Ratio 1.1 (1.0-2.8) Lipase 50 (23-300) U/L Urine RBC 1-5/hpf (0-5/HPF) Urine WBC None seen (0-5/HPF) Ur Squamous Epith Cells None seen (0-5/HPF) Urine Bacteria None seen (None) Ur Culture Indicated? Cult not indicated Vol Urine Centrifuged 10ml (spun) Urine Dip Bedside Urine Glucose Negative Bedside Urine Bilirubin - Negative Bedside Urine Ketone ++ 40 Urine Specific [place] 1.015 Bedside Urine Occult Blood +/- Bedside Urine pH 6.0 Bedside Urine Protein +/- 15 Bedside Urine Urobilinogen +/- 1mg Bedside Urine Nitrite - Negative Bedside Urine Leukocytes - Negative Esterase Imaging Data Chest x-ray: Radiologist's Impression: [place] [address] XRay Report Signed Patient: Eric Good MR#: [id number] : 1960 Acct:[id number] Age/Sex: 63 / M Date of Service: 01/10/24 Loc: ED Accession Number: [id number] Procedure: XR chest 1V Ordering Provider: Anna Haque D.O. PROCEDURE: XR CHEST 1V INDICATIONS: chest pain TECHNIQUE: One view of the chest was acquired. COMPARISON: None. FINDINGS: Surgical changes and devices: None. Lungs and pleura: Lungs are clear. No pleural effusions or pneumothorax. Mediastinum: Mediastinal contours appear normal. Heart size is normal. Bones and chest wall: No suspicious bony lesions. Overlying soft tissues appear unremarkable. IMPRESSION: No acute cardiopulmonary abnormality is seen. Dictated by: Shimon Beach M.D. on 01/10/2024 at 10:23 Approved by: Shimon Beach M.D. on 01/10/2024 at 10:26 US - abdomen: Radiologist's Impression: Close Abdomen Ultrasound (Signed) KoriSujata - 01/10/24 Chest CTA (Signed) Sujata Sheikh - 01/10/24 Chest X-Ray (Signed) Shimon Beach - 01/10/24 Launch?[address] [address] Ultrasound Report Signed Patient: Eric Good MR#: [id number] : 1960 Acct:[id number] Age/Sex: 63 / M Date of Service: 01/10/24 Loc: ED Accession Number: [id number] Procedure: US abdomen limited Ordering Provider: Anna Haque D.O. PROCEDURE: US ABDOMEN LIMITED INDICATIONS: epigastric/back pain, changes on CT TECHNIQUE: Real-time scanning was performed of the abdominal and retroperitoneal organs, with image documentation. COMPARISON: None. FINDINGS: Liver: The liver measures 16.8 cm in length and demonstrates slightly increased echogenicity. Gallbladder: Multiple gallstones are present within the gallbladder fundus. 1 gallstone is present within the cystic duct and is immobile. The wall measures up to 4 mm in diameter. Pericholecystic fluid and edema is present. Biliary ducts: Intrahepatic bile ducts are non-dilated. Extrahepatic bile duct caliber is within normal limits. Pancreas: Visualized portions of the pancreas are sonographically normal. Miscellaneous: No free abdominal fluid. IMPRESSION: 1. Cholelithiasis, gallbladder wall thickening and pericholecystic fluid suspicious for acute cholecystitis. 2. Increased hepatic echogenicity noted likely related to fatty infiltration of the liver but other sources of hepatocellular disease cannot be excluded. Dictated by: Sujata Sheikh M.D. on 01/10/2024 at 14:52 Approved by: Sujata Sheikh M.D. on 01/10/2024 at 14:55 ECG Data Attestation: I personally reviewed and interpreted this ECG as follows: Prior ECG tracings: available for review Interpretation: Sinus rhythm, right bundle branch block, rate of 99 DC 154 QRS of 148 QTC 464. Patient has prior from 06/22/2022 which shows right bundle-branch. EKG2. Sinus rhythm rate of bundle-branch block, rate of 96 DC 158 QRS of 140 QTC of 472. No acute ST changes appreciated. MDM Narrative Medical decision making narrative: This is a 63-year-old male reported medical issues who had back pain radiating to the front last Wednesday. Three days ago has been improving still has tightness. Has felt sweaty today. Labs patient has not been hypertensive slightly tachycardic oxygenation has been in the mid 90s labs show hemoglobin of 15, white count of 15, platelets of 203, creatinine 0.97 with a BUN of 13 a glucose of 121, sodium 137 potassium of 4 1 with a chloride of 102 CO2 of 29, bilirubin is 1.8- LFTs, negative troponin. Lipase is 50. Patient describes chest pain from the back radiating to the front, D-dimer was obtained in his elevated at 1322. CT angio obtained EKG shows a right bundle-branch block normal sinus rhythm patient has prior from 2021 which also has a right bundle. Troponin repeated is negative. CT angio chest is negative for pe or vascular changes patient does not have any acute changes to the lungs, 8 mm pulmonary nodule the posterior left lung base needs follow up in [address], multiple cholesterol stones with the gallbladder fundus marked gallbladder pericholecystic fat stranding was calcifications in the right hepatic loop. Results called to myself by Radiology. No reproducible pain on exam and right upper quadrant but patient is bilirubin was somewhat up. Rate epidermal ultrasound shows cholelithiasis with gallbladder wall thickening pericholecystic fluid suspicious for acute cholecystitis increased past sick echogenicity likely related to fatty infiltration of liver but other sources of hepatocellular disease can not be excluded, intrahepatic bile ducts were nondilated extrahepatic bile ducts are within normal limits pancreas is normal. Dr. Macias, general surgery plan for admission. Continue with IV antibiotics overnight and we will take to the OR tomorrow. Updated patient and family as well as update about pulmonary nodule and need for follow-up. Discharge Plan Departure Patient Disposition: Admitted As Inpatient Clinical Impression: Cholelithiasis and cholecystitis without obstruction, Pulmonary nodule Admit Date/Time: 01/10/24 15:35 Admit Provider: Redd Macias
[2024-01-10 12:41] LABS: D Dimer 1322 ng/ml (<500)
--- NOTE | 2024-01-10 13:00 | DI.CT.S_ITS ---
PROCEDURE: CT ANGIO CHEST PE PROTOCOL INDICATIONS: chest pain, started back and then went to front TECHNIQUE: After the administration of intravenous contrast, 2 mm thick sections acquired from the pulmonary apices to the posterior costophrenic angles. 3-dimensional maximum intensity projection (MIP) coronal and sagittal reformats were then acquired through the thorax. For radiation dose reduction, the following was used: automated exposure control, adjustment of mA and/or kV according to patient size. COMPARISON: None. FINDINGS: Image quality: Diagnostic. Pulmonary arteries: Pulmonary arteries are normal in size, and demonstrate no intraluminal filling defects to suggest central pulmonary embolism. Lower Neck: No enlarged lymph nodes. Thyroid: No thyroid nodules which require sonographic follow up, per consensus guidelines. Axillae: No enlarged lymph nodes. Chest Wall: Unremarkable. Bones: Unremarkable. Lungs and Pleura: No pneumothorax or pleural effusions. There is an 8 mm pulmonary nodule at the posterior left lung base. No other suspicious nodules which require follow-up. Heart: Heart size is normal. No pericardial effusion. Thoracic Vessels: No aortic aneurysm. Mediastinum and Talisha: No enlarged lymph nodes. Esophagus: No wall thickening. No hiatal hernia. Upper Abdomen: Multiple cholesterol stones are present within the gallbladder fundus. There is marked gallbladder pericholecystic fat stranding. Calcifications are noted within the right hepatic lobe. Visualized upper abdomen solid organs and bowel loops appear otherwise normal. IMPRESSION: 1. No acute pulmonary embolus. 2. Cholelithiasis and findings suspicious for acute cholecystitis. Right upper quadrant ultrasound recommended. These findings were discussed with Dr. Haque at 1:25 p.m. On January 10, 2024. 3. 8 mm left lower lobe pulmonary nodule. 6-[address] follow-up recommended. Fleischner Society criteria for SOLID lung nodule followup. Nodule size (mm)Low-risk patientHigh-risk patient<6 (single or multiple)No routine followup.Optional CT at 12 months. 6-8 (single or multiple)CT at 6-12 months, then optional CT at 18-24 mo.CT at 6-12 months, then CT at 18-24 months. >8 (single)CT at 3 months, PET-CT, or biopsy. Same as for low-risk pts. >8 (multiple)CT at 3-6 months, then optional CT at 18-24 mo.CT at 3-6 months, then CT at 18-24 months. Fleischner Society criteria for SUB-SOLID lung nodule followup. Solitary pure ground-glass nodules<6 mm (ground glass or part solid)No followup needed. 6 mm or larger (ground glass)CT at 6-12 months to confirm persistence, then CT every 2 years until 5 years.6 mm or larger (part solid)CT at 3-6 months to confirm persistence, then annual CT until 5 years if unchanged and solid component remains <6 mm. Multiple sub-solid nodules<6 mmCT at 3-6 months, then CT consider at 2 & 4 years for high risk patients. [address] at 3-6 months. Subsequent management based on most suspicious lesions. Recommendations do not apply to lung cancer screening, patients with immunosuppression, or patients with known primary cancer. Dictated by: Sujata Sheikh M.D. on 01/10/2024 at 13:27 Approved by: Sujata Sheikh M.D. on 01/10/2024 at 13:29
[2024-01-10 13:07] LABS: Troponin I < 0.012 ng/mL (0.01-0.034)
--- NOTE | 2024-01-10 13:26 | DI.US.S_ITS ---
PROCEDURE: US ABDOMEN LIMITED INDICATIONS: epigastric/back pain, changes on CT TECHNIQUE: Real-time scanning was performed of the abdominal and retroperitoneal organs, with image documentation. COMPARISON: None. FINDINGS: Liver: The liver measures 16.8 cm in length and demonstrates slightly increased echogenicity. Gallbladder: Multiple gallstones are present within the gallbladder fundus. 1 gallstone is present within the cystic duct and is immobile. The wall measures up to 4 mm in diameter. Pericholecystic fluid and edema is present. Biliary ducts: Intrahepatic bile ducts are non-dilated. Extrahepatic bile duct caliber is within normal limits. Pancreas: Visualized portions of the pancreas are sonographically normal. Miscellaneous: No free abdominal fluid. IMPRESSION: 1. Cholelithiasis, gallbladder wall thickening and pericholecystic fluid suspicious for acute cholecystitis. 2. Increased hepatic echogenicity noted likely related to fatty infiltration of the liver but other sources of hepatocellular disease cannot be excluded. Dictated by: Sujata Sheikh M.D. on 01/10/2024 at 14:52 Approved by: Sujata Sheikh M.D. on 01/10/2024 at 14:55
[2024-01-10 14:41] LABS: Urine Volume 10mL (spun)
[2024-01-10 14:43] LABS: Bacteria Urine None Seen; Culture Indicated Urine Cult Not Indicated; RBC Urine 1-5/HPF (0-5/HPF); Squamous Epithelial Cell Urine None Seen (0-5/HPF); WBC Urine None Seen (0-5/HPF)
[2024-01-10] MEDS: PIPERACILLIN/TAZO 4.5 GM in SODIUM CHLORIDE 0.9% 100 ML IV (16:03)
[2024-01-10] MEDS: LACTATED RINGERS 1,000 ML 100 ML IV (17:19)
[2024-01-11] VITALS (12 sets, daily range): BP systolic 102–128; BP diastolic 67–83; PULSE 76–94; RESP 11–20; TEMP 36.2–37.4; O2SAT 90–97; BMI 32.1
--- NOTE | 2024-01-11 | PATH_ITS ---
[facility] Accession Number: [id number] No. of containers..01 Tissue . 01 Material submitted: . gallbladder - GALLBLADDER / CONTENTS . 01 Diagnosis: GALLBLADDER AND CONTENTS, CHOLECYSTECTOMY: Acute necrotizing cholecystitis and cholelithiasis with associated organizing fibrosis and fat necrosis. [facility] 01/13/2024 1101 Local . 01 Electronically signed: . Clarissa Merchant MD, Pathologist NPI- [id number] . 01 Gross description: . Received in formalin with two patient identifiers and gallbladder and contents, is a disrupted gallbladder measuring 6.3 x 3.5 x 2.7 cm, with a roughened friable serosa and two full thickness defects ranging from 2.5 to 1.7 cm in greatest dimension. The cystic duct margin is inked blue, and no pericystic lymph node is identified. The lumen contains green to brown, friable, semisolid material with several brown roughened calculi identified within the container measuring up to 1.5 cm in greatest dimension. The mucosa is green to brown and roughened with adherent material consistent with exudate, and no additional discoloration or lesions identified. The rojas range from 0.2 to 0.5 cm thick with no lesions identified. Methods Analyst sections to include the cystic duct margin and full thickness sections are submitted in cassette A1. ([id number]) /MRV 01/12/20241917 Local . 01 Pathologist provided ICD-10: K81.2, K80.20 . 01 CPT . 773872 Specimen Comment: A courtesy copy of this report has been sent to [phone] Performed at: 01 [facility] [address] [place] [address], [place], [place] [id number] MD Scooter Hurtado MD Phone: [phone]
[2024-01-11] MEDS: PIPERACILLIN/TAZO 3.375 GM in SODIUM CHLORIDE 0.9% 100 ML IV ×4 (00:22→23:51)
[2024-01-11] MEDS: ACETAMINOPHEN 325 MG TABLET 650 MG PO ×2 (04:45→13:00)
[2024-01-11] MEDS: LACTATED RINGERS 1,000 ML 100 ML IV (04:47)
[2024-01-11 05:02] LABS: Add Manual Diff / Slide Review NO; Basophils Absolute Auto 0 /uL (0-100); Basophils Percent Auto 0.2 % (0-2); Eosinophils Absolute Auto 100 /uL (0-450); Eosinophils Percent Auto 0.8 % (2-4); Hematocrit 39.5 % (41-53); Hemoglobin 13.8 g/dL (13.5-17.5); Lymphocytes Absolute Auto 1700 /uL (1100-4500); Lymphocytes Percent Auto 12.9 % (25-40); Mean Corpuscular HGB Conc 34.9 % (30-36); Mean Corpuscular Hemoglobin 31.2 PG (26-34); Mean Corpuscular Volume 89.5 fL (80-100); Monocytes Absolute Auto 1000 /uL (0-900); Monocytes Percent Auto 7.3 % (3-14); Neutrophils Absolute Auto 10300 /uL (1500-7000); Neutrophils Percent Auto 78.8 % (50-75); Platelet Count 157 X10^3/uL (150-400); Red Blood Cell Count 4.41 X10^6/uL (4.5-5.9); Red Cell Distribution Width 13.4 % (11.6-14.8); White Blood Cell Count 13.1 X10^3/uL (4.5-11.0)
[2024-01-11 05:06] LABS: Alanine Aminotransferase 26 IU/L (<50); Albumin 3.7 g/dL (3.5-5.0); Albumin Globulin Ratio 1.1 (1.0-2.8); Alkaline Phosphatase 63 U/L (38-126); Aspartate Aminotransferase 22 IU/L (17-59); BUN Creatinine Ratio 12.9 (6-22); Bilirubin Total 1.5 mg/dL (0.2-1.3); Blood Urea Nitrogen 11 mg/dL (9-20); Calcium 8.6 mg/dL (8.4-10.2); Carbon Dioxide 26 mmol/L (22-32); Chloride 104 mmol/L (98-107); Estimated Glomerular Filt Rate > 60 mL/min (>60); Globulin 3.4 g/dL (1.7-4.1); Glucose 129 mg/dL (80-110); HEMOLYSIS < 15 (0-50); Potassium 4.2 mmol/L (3.4-5.1); Sodium 136 mmol/L (137-145); Total Protein 7.1 g/dL (6.3-8.2)
--- NOTE | 2024-01-11 06:18 | PC.NURSE ---
pt has slept most of this shift; he has been NPO since midnight; he was medicated with Tylenol this morning for c/o headache
--- NOTE | 2024-01-11 09:04 | P.HP_ITS ---
History of Present Illness History of Present Illness Date Patient Seen: 01/11/24 Time Patient Seen: 09:04 Chief complaint: thinks he had a mild heart attack Narrative: Eric is a 63-year-old man who presented to the emergency department last night for back and upper abdominal pain since Wednesday. He has had the back pain a few times before. He is never noticed any association with eating he presented yesterday thinking he was having a heart attack. He had no evidence of an DC in the ER but they found gallstones and gallbladder wall thickening on an ultrasound. His bilirubin was mildly elevated. Bile ducts were normal in size. No prior abdominal surgery. [facility] Medical History Mildly obese Herniated lumbar intervertebral disc History of Chavez's palsy History of Lyme disease Surgical History History of dental surgery History of inguinal hernia repair, bilateral History of lumbar surgery Family History Mother Cancer Father Diabetes mellitus Cancer Social History household members: significant other Smoking Status: Never smoker alcohol intake: current Meds Home Medications and Allergies Home Medications Medication Instructions Recorded Confirmed Type No Known Home Medications 01/11/24 01/11/24 History Allergies Allergy/AdvReac Type Severity Reaction Status Date / Time No Known Drug Allergies Allergy Verified 08/09/22 11:21 Exam Vital Signs (past 8 hours): - 01/11/24 04:45 01/11/24 04:48 01/11/24 07:11 Temperature 99.3 F 99.3 F 99.0 F Pulse Rate 90 76 Respiratory Rate 18 18 Blood Pressure 117/71 122/83 Pulse Oximetry 95 97 Oxygen Flow Rate 0 0 Oxygen Delivery Method Room Air Oxygen Flow Rate 0 Const General: No acute distress Orientation: alert and awake Resp Effort & Inspection: normal respiratory effort GI Palpation: soft Objective Labs 01/11/24 04:15 01/11/24 04:15 Labs: Laboratory Results - last 24 hr 01/10/24 01/10/24 01/10/24 09:55 12:35 14:30 WBC 15.3 H RBC 5.06 Hgb 15.8 Hct 45.3 MCV 89.6 MCH 31.3 MCHC 35.0 RDW 13.5 Plt Count 203 Neut % (Auto) 78.9 H Lymph % (Auto) 13.1 L [place] % (Auto) 7.1 Eos % (Auto) 0.4 L Baso % (Auto) 0.5 Neut # (Auto) 94358 H Lymph # (Auto) 2000 [place] # (Auto) 1100 H Eos # (Auto) 100 Baso # (Auto) 100 PT 12.8 H INR 1.1 APTT 32 D-Dimer 1322 H Sodium 137 Potassium 4.1 Chloride 102 Carbon Dioxide 29 BUN 13 Creatinine 0.97 Estimated GFR > 60 BUN/Creatinine Ratio 13.4 Glucose 121 H Calcium 9.3 Magnesium 2.2 Total Bilirubin 1.8 H AST 21 ALT 26 Alkaline Phosphatase 64 Total Creatine Kinase 98 Troponin I < 0.012 < 0.012 Total Protein 8.5 H Albumin 4.5 Globulin 4.0 Albumin/Globulin Ratio 1.1 Lipase 50 Urine RBC 1-5/hpf Urine WBC None seen Ur Squamous Epith Cells None seen Urine Bacteria None seen Ur Culture Indicated? Cult not indicated Vol Urine Centrifuged 10ml (spun) 01/11/24 04:15 WBC 13.1 H RBC 4.41 L Hgb 13.8 Hct 39.5 L MCV 89.5 MCH 31.2 MCHC 34.9 RDW 13.4 Plt Count 157 Neut % (Auto) 78.8 H Lymph % (Auto) 12.9 L [place] % (Auto) 7.3 Eos % (Auto) 0.8 L Baso % (Auto) 0.2 Neut # (Auto) 82002 H Lymph # (Auto) 1700 [place] # (Auto) 1000 H Eos # (Auto) 100 Baso # (Auto) 0 PT INR APTT D-Dimer Sodium 136 L Potassium 4.2 Chloride 104 Carbon Dioxide 26 BUN 11 Creatinine 0.85 Estimated GFR > 60 BUN/Creatinine Ratio 12.9 Glucose 129 H Calcium 8.6 Magnesium Total Bilirubin 1.5 H AST 22 ALT 26 Alkaline Phosphatase 63 Total Creatine Kinase Troponin I Total Protein 7.1 Albumin 3.7 Globulin 3.4 Albumin/Globulin Ratio 1.1 Lipase Urine RBC Urine WBC Ur Squamous Epith Cells Urine Bacteria Ur Culture Indicated? Vol Urine Centrifuged Assessment & Plan Assessment and plan (1) Cholelithiasis and cholecystitis without obstruction: Qualifiers: Cholelithiasis location: gallbladder Cholecystitis acuity: acute Qualified Code(s): K80.00 - Calculus of gallbladder with acute cholecystitis without obstruction Status: Acute Plan Eric is a 63-year-old man with acute cholecystitis versus symptomatic cholelithiasis. Because of his mild elevation of bilirubin I recommended we perform a laparoscopic cholecystectomy with an intraoperative cholangiogram. We discussed the risks and benefits and he would like to proceed.
--- NOTE | 2024-01-11 13:04 | CM.DANOTE ---
Patient is a 63 yo male who was admitted OBS on 01/10/24 for Abd Pains/Fatigue. Pt has [employer] for insurance and his PCP is Dr. Blue Rivera. EMR was reviewed. Per Surgeon, pt with hx of back and hernia surgery and vertigo and admitted for cholecystitis and plan for Lap Hanna today. Per RN, surgery planned for 1500 today but might go to OR earlier if availability opens. Pt independent in room. SW met bedside with pt and explained role and pt confirms he lives on [facility] with his [place] and both are active and independent at baseline. Pt does not use DME for ambulation and still drives and denies hx of HH or SNF. Pt last admitted a couple years ago for Vertigo and was able to d/c home with no needs. Pt does not anticipate any discharge needs and preference is home with spouse and confirms she will be bedside soon and can transport. Only concern is [place] to [facility] [place] if he were to discharge today. Plan: SW to follow closely post surgical intervention this afternoon to confirm safe plan of discharge home with spouse tonight vs tomorrow pending progress and any further identified discharge planning needs. LAILA Chu Discharge Planning/Care Management CM Discharge Assessment Start: 01/11/24 13:03 Freq: Status: Active Protocol: Document 01/11/24 13:03 BF (Rec: 01/11/24 13:04 [id number]) Discharge Planning Assessment Assigned Hand Welt Butter LAILA Mancini DPOA/Assigned Designee Name spouse Juana Contact Information [phone] Advance Directives? No Advance Directives on File No History Provided By Patient,Medical Record Has Patient been admitted in last 30 No days? Prior Living Arrangements House Household Members spouse Type of transporation used prior to Drives own vehicle admit Independent with ADL's Yes Is patient alert and oriented? Yes Caregiver for Another No Barriers to Discharge No Discharge Plan Home Transportation Arrangement Spouse POV Referrals Initiated None needed Additional Comment Pending progress after Lap Hanna today Whiteboard Updated in Patient Room with Yes name and ext. # of Hand Welt Butter Review Status In Process Please Provide Date Initial DC 01/11/24 Assessment Was Performed Next Review Type Continued Stay Review
[2024-01-11] MEDS: LACTATED RINGERS 1,000 ML 42 ML IV ×3 (14:53→23:51)
--- NOTE | 2024-01-11 16:06 | SUR.OPER ---
Supine on padded OR bed, head on pillow, arms secured on padded arm boards at <90 degrees abduction, legs uncrossed, safety belt at thigh, tape over blanket over lower legs.
[2024-01-11] MEDS: iopamidoL 30 ML VIAL INJ (16:19)
[2024-01-11] MEDS: BUPIVACAINE 0.5% (PF) 30 ML, EPINEPHrine 0.15 MG INJ (16:21)
--- NOTE | 2024-01-11 16:43 | PC.NURSE ---
Addendum entered by Joann Norwood R.N. 01/11/24 18:43: 1830 Pt arrived from PACU via bed, VSS, denies pain, able to eat clear liquid diet without distress, 1L NC needed to maintain O2 sats of 95%. No further needs at this time Original Note: 1430 Pt taken via bed to Pre-op area for surgery, no further pt contact at this time
--- NOTE | 2024-01-11 17:48 | PM.OP.1 ---
Operative Date/Time/Diagnoses Date of procedure: 01/11/24 Time of procedure: 17:48 Pre-op diagnosis: Acute cholecystitis Post-op diagnosis: same Procedure & Clinicians Procedure: Laparoscopic cholecystectomy Same procedure as scheduled: Yes Surgeon: Redd Macias Printing Screen Assembler: Maximus Leahy Anesthesia Type: General Operative Notes Procedure in detail: The patient was given preoperative antibiotics. The patient was brought to the operating room and placed on the table in the supine position. General endotracheal anesthesia was induced. The abdomen was prepped and draped. A time-out was performed. We made a 1 cm infraumbilical incision. We dissected down to the base of the umbilical stalk using cautery. We grasped the umbilical stalk with a Ameena clamp to elevate the abdominal wall. We scored the fascia in the midline with cautery. We pierced the peritoneum with a Peon clamp. The Janiya port was placed and the abdomen was insufflated to 15 mmHg. A 5 mm 30 degree laparoscopic was inserted. There was no evidence of any injury from the entry. Next, we placed 5 mm ports in the subxiphoid position and right upper quadrant at the midclavicular line and anterior axillary line. The patient was then positioned in reverse Trendelenburg and the table was tilted to the left. The gallbladder was extremely inflamed and edematous. The omentum was adherent to the dome of the gallbladder. The omentum was bluntly dissected off the gallbladder wall. We aspirated approximately 20 mL of dark bile to allow the gallbladder to be grasped at the dome and and retracted cephalad. We then dissected the cystic structures with a combination of hook cautery and blunt dissection. An attempt was made to perform a cholangiogram however the cystic duct appeared to be too small to accommodate the cholangiocatheter so we aborted that portion of the procedure. We placed clips on the cystic duct and artery and divided the cystic duct and artery sharply between the clips. The gallbladder was then dissected off the liver and placed in a specimen retrieval bag. The gallbladder wall was necrotic and very friable. Multiple large gallstones fell out of the gallbladder as it fell apart during the dissection. We irrigated the right upper quadrant and all the aspirate returned clear. The specimen and the gallstones were collected and placed in 2 endo bags. A 19 round Santos drain was placed through the right lateral port and placed into the gallbladder fossa and secured with a stitch to the skin. We then removed the 5 mm ports under direct vision we removed the Janiya port. We did extend the fascial incision to 2 cm to extract the specimen. We then injected some local into the fascia and closed the fascia with 4 interrupted 0 Vicryl sutures. The skin incisions were closed with 4-0 Monocryl and Steri-Strips were applied. Band-Aids were applied over the Steri-Strips. EBL: 30 mL Specimen: Gallbladder and contents Maximus GARDINER provided assistance with exposure, retraction and closure of incisions. Post-operative Condition: stable Disposition: PACU
[2024-01-12] VITALS: BP 107/73; PULSE 82; RESP 18; TEMP 36.1; O2SAT 95
[2024-01-12] MEDS: IBUPROFEN 600 MG TABLET PO ×2 (00:52→08:17)
[2024-01-12 04:00] VITALS: BP 109/73; PULSE 89; RESP 17; TEMP 36.1; O2SAT 99
[2024-01-12 04:37] LABS: Add Manual Diff / Slide Review NO; Basophils Absolute Auto 0 /uL (0-100); Basophils Percent Auto 0.1 % (0-2); Eosinophils Absolute Auto 0 /uL (0-450); Hematocrit 37.1 % (41-53); Hemoglobin 13.1 g/dL (13.5-17.5); Lymphocytes Absolute Auto 900 /uL (1100-4500); Lymphocytes Percent Auto 10.1 % (25-40); Mean Corpuscular HGB Conc 35.2 % (30-36); Mean Corpuscular Hemoglobin 31.5 PG (26-34); Mean Corpuscular Volume 89.4 fL (80-100); Monocytes Absolute Auto 400 /uL (0-900); Monocytes Percent Auto 4.1 % (3-14); Neutrophils Absolute Auto 7400 /uL (1500-7000); Neutrophils Percent Auto 85.7 % (50-75); Platelet Count 192 X10^3/uL (150-400); Red Blood Cell Count 4.15 X10^6/uL (4.5-5.9); Red Cell Distribution Width 13.9 % (11.6-14.8); White Blood Cell Count 8.6 X10^3/uL (4.5-11.0)
[2024-01-12 05:05] LABS: Alanine Aminotransferase 52 IU/L (<50); Albumin 3.4 g/dL (3.5-5.0); Alkaline Phosphatase 66 U/L (38-126); Aspartate Aminotransferase 44 IU/L (17-59); BUN Creatinine Ratio 15.8 (6-22); Bilirubin Total 0.8 mg/dL (0.2-1.3); Blood Urea Nitrogen 12 mg/dL (9-20); Calcium 8.7 mg/dL (8.4-10.2); Carbon Dioxide 25 mmol/L (22-32); Chloride 107 mmol/L (98-107); Estimated Glomerular Filt Rate > 60 mL/min (>60); Globulin 3.5 g/dL (1.7-4.1); Glucose 198 mg/dL (80-110); HEMOLYSIS < 15 (0-50); Sodium 137 mmol/L (137-145); Total Protein 6.9 g/dL (6.3-8.2)
[2024-01-12] MEDS: PIPERACILLIN/TAZO 3.375 GM in SODIUM CHLORIDE 0.9% 100 ML IV (08:17)
[2024-01-12 08:47] VITALS: BP 112/74; PULSE 75; RESP 16; TEMP 36.4; O2SAT 95
--- NOTE | 2024-01-12 13:18 | P.DS_ITS ---
History of Present Illness History of Present Illness Chief complaint: thinks he had a mild heart attack Narrative: Eric is a 63-year-old man who presented to the emergency department last night for back and upper abdominal pain since Wednesday. He has had the back pain a few times before. He is never noticed any association with eating he presented yesterday thinking he was having a heart attack. He had no evidence of an [place] in the ER but they found gallstones and gallbladder wall thickening on an ultrasound. His bilirubin was mildly elevated. Bile ducts were normal in size. No prior abdominal surgery. Discharge Providers Provider Date of admission: 01/10/24 15:35 Discharge Date: 01/12/24 Primary care physician: Blue Rivera MD Discharge provider: Redd Macias MD Summary Hospital Course Discharge Diagnosis: Acute cholecystitis Hospital Course: The patient underwent a laparoscopic cholecystectomy. No cholangiogram was able to be performed due to the small diameter of the cystic duct. A drain was placed. By the following day he was feeling much improved and his labs had normalized including bilirubin. On postoperative day 1 the drain contained scant serosanguineous output and was removed. He was discharged home. Exam Vital Signs (past 8 hours): - 01/12/24 07:00 01/12/24 08:47 Temperature 97.6 F Pulse Rate 75 Respiratory Rate 16 Blood Pressure 112/74 Pulse Oximetry 95 Oxygen Delivery Method Room Air Oxygen Delivery Method Room Air Oxygen Flow Rate 2 Objective Labs 01/12/24 04:15 01/12/24 04:15 Labs: Laboratory Results - last 24 hr 01/12/24 04:15 WBC 8.6 RBC 4.15 L Hgb 13.1 L Hct 37.1 L MCV 89.4 MCH 31.5 MCHC 35.2 RDW 13.9 Plt Count 192 Neut % (Auto) 85.7 H Lymph % (Auto) 10.1 L [place] % (Auto) 4.1 Eos % (Auto) 0.0 L Baso % (Auto) 0.1 Neut # (Auto) 7400 H Lymph # (Auto) 900 L [place] # (Auto) 400 Eos # (Auto) 0 Baso # (Auto) 0 Sodium 137 Potassium 4.0 Chloride 107 Carbon Dioxide 25 BUN 12 Creatinine 0.76 Estimated GFR > 60 BUN/Creatinine Ratio 15.8 Glucose 198 H Calcium 8.7 Total Bilirubin 0.8 AST 44 ALT 52 H Alkaline Phosphatase 66 Total Protein 6.9 Albumin 3.4 L Globulin 3.5 Albumin/Globulin Ratio 1.0 PFSH Medical History Mildly obese Herniated lumbar intervertebral disc History of Chavez's palsy History of Lyme disease Surgical History History of dental surgery History of inguinal hernia repair, bilateral History of lumbar surgery Family History Mother Cancer Father Diabetes mellitus Cancer Social History household members: spouse Smoking Status: Never smoker alcohol intake: current Discharge Plan Discharge Plan Patient Disposition: Home Provider Discharge Comment: No lifting greater than 30 lb for 2 weeks. Okay to remove the outer dressing and shower after 24 hours. Steri-Strips can get wet in the shower. Remove the Steri-Strips after 5-7 days. Discharge orders & Medications Prescriptions: No Action No Known Home Medications Follow up/Referrals: Blue Rivera MD [Primary Care Provider] - Miscellaneous,MD Pratik [Non-Staff] - Visit Report/Discharge Packet Stand Alone Forms: Patient Portal/API, Stroke Signs & Symptoms Discharge Data Primary Care Provider: Blue Rivera Attending Provider: Redd Macias Admit Date/Time: 01/10/24 15:35
--- NOTE | 2024-01-12 14:30 | CM.DPC ---
DCP Cont. Reviewed EMR and team rounds for status updates. Pt has stabilized and has been medically cleared for d/c. No further DCP needs identified at this time.
== END 2024-01-12 14:00 | disposition home or self-care (01) ==
LOC: ED 15:35 → AC 15:37
PROVIDERS: Admitting Provider Surgery; Emergency Provider Emergency Medicine; PCP Internal Medicine; Visit Provider Surgery
PROC: 0FT44ZZ Resection of Gallbladder, Percutaneous Endoscopic Approach (ICD-10-PCS; CPT 47562; principal; 2024-01-11 15:00)
DX: K80.00 Calculus of gallbladder with acute cholecystitis without obstruction (principal); K82.8 Other specified diseases of gallbladder; R07.9 Chest pain, unspecified
CPT/HCPCS: 47562; 36415; 71045; 71275; 76000; 76705; 80053; 81003; 81015; 82550; 83690; 83735; 84484; 85025; 85379; 85610; 85730; 93005; 96365; 96366; 99221; 99284; G0378; J0171; J1100; J1170; J1885; J2405; J2543; J2704; J3010; Q9967

== ENCOUNTER → 2024-02-01 09:00 | Outpatient (CLI) | payer OTHER, SELFPAY ==
[2024-01-10 16:51] VITALS: BMI 32.1
--- NOTE | 2024-02-01 09:01 | DI.RAD.S_ITS ---
PROCEDURE: XR FINGER LT MIN 2V INDICATIONS: Lt thumb pain TECHNIQUE: AP hand, 2 views of the 1st finger(s) acquired. COMPARISON: None. FINDINGS: Bones: No fractures or dislocations. No suspicious bony lesions. Mild 1st CMC joint space narrowing and osteophytosis. Soft tissues: No suspicious soft tissue calcifications. IMPRESSION: No acute bony abnormality. 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 Dictated by: Paul Bull M.D. on 02/01/2024 at 12:48 Approved by: Paul Bull M.D. on 02/01/2024 at 12:48
== END ==
LOC: RAD 09:01
PROVIDERS: PCP Family Medicine; Referring Provider Family Medicine; Visit Provider Family Medicine
DX: M18.12 Unilateral primary osteoarthritis of first carpometacarpal joint, left hand (principal); M79.645 Pain in left finger(s)
CPT/HCPCS: 73140

== ENCOUNTER → 2024-02-04 09:56 | Outpatient (CLI) | payer OTHER, SELFPAY ==
[2024-01-10 16:51] VITALS: BMI 32.1
[2024-02-04 11:11] LABS: Hemoglobin A1C% w Est Avg Glu 5.5 % (4.0-6.0)
[2024-02-04 11:30] LABS: Cholesterol 219 mg/dL (140-199); HDL Cholesterol 38 mg/dL (40-60); LDL Cholesterol Calculated 123 mg/dL (<100); Triglycerides 292 mg/dL (35-150)
[2024-02-04 12:01] LABS: Prostate Specific Antigen Scrn 3.01 ng/mL (0.1-4.0)
[2024-02-04 12:22] LABS: HIV 1 & 2 Ab/Ag 4th Gen Combo NEGATIVE (NEGATIVE); Hep C Virus Ab w/Reflex Quant NEGATIVE s/c (NEGATIVE)
== END ==
PROVIDERS: PCP Family Medicine; Referring Provider Family Medicine; Visit Provider Family Medicine
DX: Z11.59 Encounter for screening for other viral diseases (principal); Z11.4 Encounter for screening for human immunodeficiency virus [HIV]; Z12.5 Encounter for screening for malignant neoplasm of prostate; E78.2 Mixed hyperlipidemia; R73.01 Impaired fasting glucose
CPT/HCPCS: 36415; 80061; 83036; 86803; 87389; G0103

== ENCOUNTER → 2024-07-05 14:06 | Outpatient (CLI) | payer MEDICARE, BC, SELFPAY ==
[2024-01-10 16:51] VITALS: BMI 32.1
--- NOTE | 2024-07-05 14:12 | DI.CT.S_ITS ---
PROCEDURE: CT CHEST WO CON INDICATIONS: f/u pulm nodule TECHNIQUE: Noncontrast 2.0-2.5 mm thick sections acquired from the pulmonary apices to the posterior costophrenic angles. 7 mm thick axial MIP and 5 mm coronal and sagittal reformats were then acquired. For radiation dose reduction, the following was used: automated exposure control, adjustment of mA and/or kV according to patient size. COMPARISON: [facility], CT, CT ANGIO CHEST PE PROTOCOL, 01/10/2024, 13:10. FINDINGS: Image quality: Diagnostic. Lower Neck: No enlarged lymph nodes. Thyroid: No thyroid nodules which require sonographic follow up, per consensus guidelines. Axillae: No enlarged lymph nodes. Chest Wall: Unremarkable. Bones: Unremarkable. Lungs and Pleura: No pneumothorax or pleural effusions. No consolidations. Previously described 8 mm solid nodule in posterior left lung base remains unchanged series 3, image 254 and likely contains small focus of internal calcification. No new pulmonary nodule is seen. Heart: Heart size is normal. No pericardial effusion. Thoracic Vessels: The aorta and pulmonary arteries demonstrate normal size. Mediastinum and Talisha: No enlarged lymph nodes. Esophagus: No wall thickening. No hiatal hernia. Upper Abdomen: Calcified granuloma are seen in right hepatic lobe unchanged from prior study. Small calcification is also seen in right adrenal gland. IMPRESSION: 1. Stable 8 mm partially calcified nodule at right lung base unchanged from prior study and may represent a calcified granuloma. Additional parenchymal calcifications seen in right hepatic lobe and right adrenal gland concerning for prior granulomatous infection. Additional [address] chest follow-up can be done to further establish stability. 2. No new pulmonary nodule or mass. No pleural effusion or pneumothorax. No mediastinal or hilar lymphadenopathy. Fleischner Society criteria for SOLID lung nodule followup. Nodule size (mm)Low-risk patientHigh-risk patient<6 (single or multiple)No routine followup.Optional CT at 12 months. 6-8 (single or multiple)CT at 6-12 months, then optional CT at 18-24 mo.CT at 6-12 months, then CT at 18-24 months. >8 (single)CT at 3 months, PET-CT, or biopsy. Same as for low-risk pts. >8 (multiple)CT at 3-6 months, then optional CT at 18-24 mo.CT at 3-6 months, then CT at 18-24 months. Fleischner Society criteria for SUB-SOLID lung nodule followup. Solitary pure ground-glass nodules<6 mm (ground glass or part solid)No followup needed. 6 mm or larger (ground glass)CT at 6-12 months to confirm persistence, then CT every 2 years until 5 years.6 mm or larger (part solid)CT at 3-6 months to confirm persistence, then annual CT until 5 years if unchanged and solid component remains <6 mm. Multiple sub-solid nodules<6 mmCT at 3-6 months, then CT consider at 2 & 4 years for high risk patients. [address] at 3-6 months. Subsequent management based on most suspicious lesions. Recommendations do not apply to lung cancer screening, patients with immunosuppression, or patients with known primary cancer. Dictated by: Isiah Bond M.D. on 07/05/2024 at 19:35 Approved by: Isiah Bond M.D. on 07/05/2024 at 19:39
== END ==
PROVIDERS: PCP Family Medicine; Referring Provider Family Medicine; Visit Provider Family Medicine
DX: R91.1 Solitary pulmonary nodule (principal); E27.49 Other adrenocortical insufficiency; K76.9 Liver disease, unspecified
CPT/HCPCS: 71250

== ENCOUNTER → 2024-08-30 09:08 | Outpatient (CLI) | payer MEDICARE, OTHER, SELFPAY ==
[2024-01-10 16:51] VITALS: BMI 32.1
[2024-08-30 10:17] LABS: Hematocrit 45.7 % (41-53); Hemoglobin 15.7 g/dL (13.5-17.5); Mean Corpuscular HGB Conc 34.3 % (30-36); Mean Corpuscular Hemoglobin 31.3 PG (26-34); Mean Corpuscular Volume 91.3 fL (80-100); Platelet Count 173 X10^3/uL (150-400); Red Blood Cell Count 5.01 X10^6/uL (4.5-5.9); Red Cell Distribution Width 13.2 % (11.6-14.8); White Blood Cell Count 5.8 X10^3/uL (4.5-11.0)
[2024-08-30 10:38] LABS: Alanine Aminotransferase 26 IU/L (<50); Albumin 4.5 g/dL (3.5-5.0); Albumin Globulin Ratio 1.7 (1.0-2.8); Alkaline Phosphatase 57 U/L (38-126); Aspartate Aminotransferase 25 IU/L (17-59); Bilirubin Total 0.6 mg/dL (0.2-1.3); Blood Urea Nitrogen 13 mg/dL (9-20); Calcium 9.6 mg/dL (8.4-10.2); Carbon Dioxide 27 mmol/L (22-32); Chloride 105 mmol/L (98-107); Cholesterol 235 mg/dL (140-199); Estimated Glomerular Filt Rate > 60 mL/min (>60); Globulin 2.6 g/dL (1.7-4.1); Glucose 124 mg/dL (80-110); HDL Cholesterol 38 mg/dL (40-60); HEMOLYSIS < 15 (0-50); LDL Cholesterol Calculated 122 mg/dL (<100); Sodium 138 mmol/L (137-145); Total Protein 7.1 g/dL (6.3-8.2); Triglycerides 377 mg/dL (35-150)
== END ==
PROVIDERS: PCP Family Medicine; Referring Provider Family Medicine; Visit Provider Family Medicine
DX: Z00.00 Encounter for general adult medical examination without abnormal findings (principal); R73.01 Impaired fasting glucose; E78.2 Mixed hyperlipidemia; R91.1 Solitary pulmonary nodule; R42 Dizziness and giddiness; D64.9 Anemia, unspecified; H91.93 Unspecified hearing loss, bilateral
CPT/HCPCS: 36415; 80053; 80061; 85027

== ENCOUNTER → 2025-08-28 07:05 | Outpatient (CLI) | payer MEDICARE, OTHER, SELFPAY ==
[2024-01-10 16:51] VITALS: BMI 32.1
[2025-08-28 08:38] LABS: Cholesterol 201 mg/dL (140-199); HDL Cholesterol 36 mg/dL (40-60); Triglycerides 391 mg/dL (35-150)
== END ==
PROVIDERS: PCP Family Medicine; Referring Provider Family Medicine; Visit Provider Family Medicine
DX: E78.2 Mixed hyperlipidemia (principal)
CPT/HCPCS: 36415; 80061